=== PATIENT | female | born 1990 | race Caucasian/White ===

== ENCOUNTER 2021-01-04 13:56 | Outpatient (REF) | payer MEDICARE, MEDICAID, SELFPAY ==
[2021-01-04 16:41] LABS: Free T4 (Free Thyroxine) 1.04 ng/dL (0.71-1.85); Thyroid Stimulating Hormone 0.97 uIU/mL (0.32-4.0)
== END 2021-01-04 13:57 | disposition home or self-care (01) ==
LOC: HO.LAB 13:56
PROVIDERS: PCP Internal Medicine; Visit Provider Internal Medicine Endocrinology, Diabetes & Metabolism
DX: E03.8 Other specified hypothyroidism (principal); E06.3 Autoimmune thyroiditis; E66.01 Morbid (severe) obesity due to excess calories; Z68.41 Body mass index [BMI] 40.0-44.9, adult
CPT/HCPCS: 36415; 84439; 84443; 99212

== ENCOUNTER 2021-05-09 13:20 | Emergency (ER) | payer MEDICARE, MEDICAID, SELFPAY ==
--- NOTE | 2021-05-09 | ECG_ITS ---
Test Reason : FALL/SYNCOPE Blood Pressure : / mmHG Vent. Rate : 083 BPM Atrial Rate : 083 BPM P-R Int : 158 ms QRS Dur : 076 ms QT Int : 360 ms P-R-T Axes : 038 012 027 degrees QTc Int : 423 ms Normal sinus rhythm Cannot rule out Anterior infarct , age undetermined Abnormal ECG When compared with ECG of 05-NOV-2009 12:29, No significant change was found Referred By: Generic ED Physician Electronically Signed By:LUIS FELIPE FIERRO
--- NOTE | ~2021-05-09 | CT_ITS ---
EXAMINATION: CT HEAD WITHOUT CONTRAST CLINICAL INFORMATION: Headache and syncope. Rule out fracture, infarct or bleed. COMPARISON: Previous head CT October 2009 TECHNIQUE: Contiguous axial imaging was performed from the skull base to vertex without intravenous administration of contrast. This CT examination was performed using dose optimization techniques as appropriate, variously including the following: *Automated exposure control *Adjustment of mA and/or kV according to patient size (this includes techniques or standardized protocols for targeted exams where dose is matched to indication/reason for exam; i.e. extremities or head) *Use of iterative reconstruction technique DLP: 668 mGy-cm FINDINGS: There is no evidence of acute intracranial hemorrhage or territorial infarction. No abnormal mass effect or midline shift is seen. Still to white matter differentiation is well preserved. No extra-axial fluid collections are identified. The ventricles are normal in size. There is no abnormal attenuation within the brain parenchyma. The osseous structures and soft tissues are normal. The mastoid air cells and visualized portions of the paranasal sinuses are clear. CT/CT head/brain wo con IMPRESSION: Unremarkable exam.
[2021-05-09 13:28] VITALS: BP 153/85; PULSE 92; RESP 18; TEMP 37.1; O2SAT 97; BMI 41.1
[2021-05-09 15:44] LABS: MANUAL DIFF FLAG NO
[2021-05-09 15:47] LABS: Basophils Percent Auto 0.2 % (0-2); Eosinophils Percent Auto 0.3 % (0-4); Hematocrit 42.6 % (37-47); Hemoglobin 14.1 g/dl (12.0-16.0); Imm Gran Abs Auto 0.02 X10*3/uL (0.00-0.03); Imm Gran Pct Auto 0.2 % (0.0-0.4); Lymphocytes Absolute Auto 2.5 X10*3/uL (1.2-4.9); Lymphocytes Percent Auto 24.9 % (20-40); Mean Corpuscular HGB Conc 33.1 g/dl (31.0-35.0); Mean Corpuscular Hemoglobin 31.3 pg (27.0-33.0); Mean Corpuscular Volume 94.7 fL (80-98); Mean Platelet Volume 10.6 fL (9.4-12.3); Monocytes Absolute Auto 0.7 X10*3/uL (0.1-1.2); Monocytes Percent Auto 7.3 % (2-11); Neutrophils Absolute Auto 6.8 X10*3/uL (2.0-8.3); Neutrophils Percent Auto 67.1 % (45-73); Platelet Count 213 X10*3/uL (160-400); Red Cell Distribution Width 12.4 % (11.0-16.0); White Blood Count 10.1 X10*3/uL (4.8-10.8)
[2021-05-09 16:11] LABS: Alanine Aminotransferase 17 U/L (0-31); Albumin Level 5.1 g/dL (3.5-5.0); Alkaline Phosphatase 64 U/L (39-117); Anion Gap 15 (12-20); Aspartate Amino Transferase 20 U/L (5-31); Bilirubin Total 0.7 mg/dL (0.0-1.0); Blood Urea Nitrogen 19 mg/dL (9-16); Calcium 10.1 mg/dL (8.4-10.2); Carbon Dioxide 24 mmol/L (22-29); Chloride 111 mmol/L (96-108); Creatinine Clr Calc Pharmacy 104.8; Estimated Glomerular Filt Rate > 60; Glucose Random 97 mg/dL (60-115); Potassium 4.3 mmol/L (3.3-5.1); Sodium 146 mmol/L (135-145); Total Protein 8.3 g/dL (6.5-8.0)
--- NOTE | 2021-05-09 17:13 | ED_ITS ---
HPI - General Adult General Chief complaint: Syncope Stated complaint: passed out Time Seen by Provider: 05/09/21 16:31 Source: patient and family (Dari, the patient's healthcare proxy and remain) Mode of arrival: ambulatory Limitations: no limitations History of Present Illness HPI narrative: 30-year-old female who presents emergency department for evaluation of a syncopal episode that occurred at work. I did speak to the patient's healthcare proxy, Dari who states the patient has developmental delay and psychiatric issues. She states that the patient is a poor informant as well. Apparently, the patient has been coming home angry after work and her prescriber started her on 3 new psychiatric medications. The patient was started on clonidine 0.1 mg, half a mg in the morning, half a mg at 4:00 p.m. an d 1 mg at night. She was also started on lorazepam 0.5 mg at night. She was also started on aripiprazole in the morning. According to the patient's healthcare proxy, the patient has been taking this for approximately 3 days. Since starting these new medications, she has been in ?wobbly, feeling shaky and has been lethargic and somnolent. 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 She states that she went to put something away when she felt like her ?h ead was boiling ?. She states that she then became sweaty, lightheaded, dizzy and then felt like she was going to pass out. Her coworkers put her in a wheelchair and the patient states that she lost consciousness for an unknown period of time. The patient was then brought to the emergency department for evaluation. At the time of my evaluation, the patient has no complaints. Related Data Home Medications Medication Instructions Recorded Confirmed acetaminophen 650 mg 650 mg PO Q6H tab 10/22/20 01/04/21 tablet,extended release chlorhexidine gluconate 0.12 % PO 10/22/20 01/04/21 mouthwash albuterol sulfate 90 mcg/actuation 2 puff INHALATION PRN g 01/04/21 01/04/21 aerosol inhaler Previous Rx's Medication Instructions Recorded omeprazole 20 mg capsule,delayed 20 mg PO DAILY 90 Days #90 cap 10/22/20 release Levoxyl 125 mcg tablet 125 mcg PO DAILY 90 Days #90 tab NS 01/04/21 Allergies Allergy/AdvReac Type Severity Reaction Status Date / Time No Known Allergies Allergy Mild NOT Verified 12/18/20 11:11 APPLICABLE Review of Systems Review of Systems: Yes all other systems are reviewed and are negative [facility] Past Medical History [facility] Narrative: Past medical history: See below, patient does have developmental delay and psychiatric/psychosis. Social history: The patient denies tobacco, alcohol or drug use. Social history: She lives with her healthcare proxy, Dari. She does not drink alcohol she does not smoke cigarettes, she does not use drugs. Medical History Anxiety Asthma Daytime somnolence Hypothyroidism Morbid obesity Obese Physical exam Shortness of breath Urge urinary incontinence Surgical History History of appendectomy Family History Family History Father Diabetes Mother Diabetes Maternal Uncle Throat cancer Social History Social History Alcohol intake: never Advance Directives: No Advance Directives Information Provided: Yes Patient : No Physical Exam Vital Signs: Vital Signs: Last Vital Signs Temp 97.7 F 05/09/21 17:25 Pulse 82 05/09/21 17:25 Resp 18 05/09/21 17:25 BP 138/95 H 05/09/21 17:25 Pulse Ox 97 05/09/21 17:25 Body Mass Index 41.1 Const: General: cooperative Orientation/consciousness: oriented to person and oriented to place HENMT: Head: Yes normal to inspection, Yes normocephalic and Yes atraumatic Ears: external ears normal General nose exam: Normal external nose present Face and sinus: Yes normal facial exam Mouth: Normal oral and palatal mucosa present Throat: Yes posterior oropharynx normal Eyes: Periorbital: periorbital findings normal Eyelids: Yes eyelids normal Conjunctivae: conjunctivae normal Sclerae: sclerae normal Corneas: corneas normal Pupils: Equal, round and reactive pupils present Direct Ophthalmoscopy: normal light reflex Neck: Neck: Yes full ROM, Yes no lymphadenopathy, Yes no meningeal signs, Yes trachea midline and Yes supple Chest: Chest palpation & inspection: normal inspection of the chest and normal palpation of entire chest wall Resp: Effort & Inspection: normal respiratory effort and able to speak in complete sentences Auscultation: clear to auscultation bilaterally Cardio: Rate: regular rate Rhythm: regular rhythm Heart sounds: S1 normal heart sound present, S2 normal heart sound present and no murmurs GI: Inspection: Yes normal to inspection Palpation (GI): Soft to palpation, nontender, no guarding, not rigid and No hepatosplenomegaly present : General: Yes no CVA tenderness Back/Spine/Pelvis: Back: no CVA tenderness Cervical Spine: normal cervical lordosis Thoracic/Lumbar Spine: thoracic and lumbar spine normal to inspection Skin: Lesions: no lesions Rashes: no rashes Wounds: no wounds Neuro: General: oriented to person, oriented to place and no meningeal signs Cranial nerves: Yes CN's II-XII intact bilaterally and Yes Equal, round and reactive pupils present Cognition (Neuro): normal cognition Motor exam (neuro): 5/5 motor strength present throughout Extrem: General: Yes normal to inspection and Yes full ROM Psych: Mental Status: mental status grossly normal Speech and movement: Normal speech and movement present Affect: normal affect Attitude: co operative Course Course Course Narrative: 30-year-old female who presents emergency department for evaluation was syncopal episode that occurred at work. The patient has been started on new psychiatric medications and according to her healthcare proxy, the patient has been more lethargic on these new medications. Patient's physical examination was unremarkable. Laboratory evaluation revealed a normal CBC. Panel did reveal a slight elevation in her sodium of 146 and an elevated chloride of 111 suggesting that she is dehydrated. BUN was also slightly elevated at 19. 3+ blood and microscopic revealed 15-29 red blood cells with 1-4 white blood cells and squamous cells with 1+ bacteria -I do not think that she has urine infection. Twelve EKG was unremarkable. At this time I suspect the patient had a vasovagal syncopal event secondary to being dehydrated also possibly related to her being overmedicated from her new psychiatric medications. The patient will be discharged home. I told her healthcare proxy to contact her prescribing physician to discuss changing her medications since she has 2 lethargic on these medications. Medical Decision Making Lab Data Result diagrams: 05/09/21 15:37 05/09/21 15:37 Labs: Lab Results 05/09/21 05/09/21 05/09/21 Range/Units 15:37 15:37 17:26 WBC 10.1 (4.8-10.8) X10*3/uL RBC 4.50 (4.20-5.50) X10*6/uL Hgb 14.1 (12.0-16.0) g/dl Hct 42.6 (37-47) % MCV 94.7 (80-98) fL MCH 31.3 (27.0-33.0) pg MCHC 33.1 (31.0-35.0) g/dl RDW 12.4 (11.0-16.0) % Plt Count 213 (160-400) X10*3/uL MPV 10.6 (9.4-12.3) fL Immature Gran % (Auto) 0.2 (0.0-0.4) % Neut % (Auto) 67.1 (45-73) % Lymph % (Auto) 24.9 (20-40) % [place] % (Auto) 7.3 (2-11) % Eos % (Auto) 0.3 (0-4) % Baso % (Auto) 0.2 (0-2) % Lymph # (Auto) 2.5 (1.2-4.9) X10*3/uL [place] # (Auto) 0.7 (0.1-1.2) X10*3/uL Eos # (Auto) 0.0 (0.0-0.4) X10*3/uL Baso # (Auto) 0.0 (0.0-0.2) X10*3/uL Abs Immat Gran (auto) 0.02 (0.00-0.03) X10*3/uL Absolute Neuts (auto) 6.8 (2.0-8.3) X10*3/uL Absolute Nucleated RBC 0.000 (0.0-0.012) X10*3/uL Nucleated RBC % (auto) 0.0 (0.0-0.2) /100WBC Sodium 146 H (135-145) mmol/L Potassium 4.3 (3.3-5.1) mmol/L Chloride 111 H (96-108) mmol/L Carbon Dioxide 24 (22-29) mmol/L Anion Gap 15 (12-20) BUN 19 H (9-16) mg/dL Creatinine 0.83 (0.5-1.4) mg/dL Estim Creat Clear Calc 104.8 Estimated GFR > 60 Random Glucose 97 (60-115) mg/dL Calcium 10.1 (8.4-10.2) mg/dL Total Bilirubin 0.7 (0.0-1.0) mg/dL AST 20 (5-31) U/L ALT 17 (0-31) U/L Alkaline Phosphatase 64 (39-117) U/L Troponin I High Sens (<3.5-17.0) ng/L Total Protein 8.3 H (6.5-8.0) g/dL Albumin 5.1 H (3.5-5.0) g/dL Urine Color YELLOW Urine Appearance HAZY Urine pH 6.0 (5.0-8.0) Ur Specific [place] >= 1.030 H (1.005-1.025) Urine Protein 1+ H (NEG-TRACE) MG/DL Urine Glucose (UA) NEG (NEG) MG/DL Urine Ketones 5 (NEG) MG/DL Urine Blood 3+ H (NEG) Urine Nitrite NEG (NEG) Ur Leukocyte Esterase NEG (NEG) Urine RBC 15-29 H (0) /HPF Urine WBC 1-4 (0-4) /HPF Ur Squamous Epith Cells 3+ /LPF Amorphous Sediment 1+ /LPF Urine Bacteria 1+ /LPF Urine Test (NEGATIVE) 05/09/21 05/09/21 Range/Units 17:26 18:33 WBC (4.8-10.8) X10*3/uL RBC (4.20-5.50) X10*6/uL Hgb (12.0-16.0) g/dl Hct (37-47) % MCV (80-98) fL MCH (27.0-33.0) pg MCHC (31.0-35.0) g/dl RDW (11.0-16.0) % Plt Count (160-400) X10*3/uL MPV (9.4-12.3) fL Immature Gran % (Auto) (0.0-0.4) % Neut % (Auto) (45-73) % Lymph % (Auto) (20-40) % [place] % (Auto) (2-11) % Eos % (Auto) (0-4) % Baso % (Auto) (0-2) % Lymph # (Auto) (1.2-4.9) X10*3/uL [place] # (Auto) (0.1-1.2) X10*3/uL Eos # (Auto) (0.0-0.4) X10*3/uL Baso # (Auto) (0.0-0.2) X10*3/uL Abs Immat Gran (auto) (0.00-0.03) X10*3/uL Absolute Neuts (auto) (2.0-8.3) X10*3/uL Absolute Nucleated RBC (0.0-0.012) X10*3/uL Nucleated RBC % (auto) (0.0-0.2) /100WBC Sodium (135-145) mmol/L Potassium (3.3-5.1) mmol/L Chloride (96-108) mmol/L Carbon Dioxide (22-29) mmol/L Anion Gap (12-20) BUN (9-16) mg/dL Creatinine (0.5-1.4) mg/dL Estim Creat Clear Calc Estimated GFR Random Glucose (60-115) mg/dL Calcium (8.4-10.2) mg/dL Total Bilirubin (0.0-1.0) mg/dL AST (5-31) U/L ALT (0-31) U/L Alkaline Phosphatase (39-117) U/L Troponin I High Sens < 3.5 (<3.5-17.0) ng/L Total Protein (6.5-8.0) g/dL Albumin (3.5-5.0) g/dL Urine Color Urine Appearance Urine pH (5.0-8.0) Ur Specific [place] (1.005-1.025) Urine Protein (NEG-TRACE) MG/DL Urine Glucose (UA) (NEG) MG/DL Urine Ketones (NEG) MG/DL Urine Blood (NEG) Urine Nitrite (NEG) Ur Leukocyte Esterase (NEG) Urine RBC (0) /HPF Urine WBC (0-4) /HPF Ur Squamous Epith Cells /LPF Amorphous Sediment /LPF Urine Bacteria /LPF Urine Test NEGATIVE (NEGATIVE) ECG Data Attestation: I personally reviewed and interpreted this ECG as follows: Interpretation: 1619: Normal sinus rhythm, rate 83, normal OR interval, QRS duration and QTC intervals, no ST segment elevation or depression, no no PACs, no PVCs. Discharge Plan Discharge Clinical Impression: Syncope, Acute dehydration Patient Disposition: Home, Self-Care Instructions: Syncope (ED) Additional Instructions: At this time, I believe that you passed out because you are dehydrated You also may have been overmedicated by your new medications. Your healthcare proxy should call your prescribing doctor tomorrow to discuss whether not you should continue on medications. Please return to the emergency department if your symptoms get worse or if you develop any symptoms that are concerning to you. Prescriptions: No Action chlorhexidine gluconate 0.12 % mouthwash PO RF: 0 acetaminophen [Tylenol 8 Hour] 650 mg tablet extended release 650 mg PO Q6H RF: 0 omeprazole 20 mg capsule,delayed release(DR/EC) 20 mg PO DAILY 90 Days Qty: 90 RF: 3 albuterol sulfate 90 mcg/actuation HFA aerosol inhaler 2 puff inhalation PRN (Reason: shortness of breath or wheezing) RF: 0 levothyroxine [Levoxyl] 125 mcg tablet 125 mcg PO DAILY 90 Days Qty: 90 RF: 2 Stand Alone Forms: Work/School Release
[2021-05-09 17:25] VITALS: BP 138/95; PULSE 82; RESP 18; TEMP 36.5; O2SAT 97
[2021-05-09 17:59] LABS: Glucose Urine UA NEG (NEG); Leukocyte Esterase Urine NEG (NEG); Nitrite Urine NEG (NEG); Specific Gravity - Urine >= 1.030 (1.005-1.025); Urine Blood 3+ (NEG); Urine Ketones 5 MG/DL (NEG); Urine Protein 1+ MG/DL (NEG-TRACE)
[2021-05-09 18:05] LABS: Urine Pregnancy NEGATIVE (NEGATIVE)
[2021-05-09 18:06] LABS: UPreg QC Valid YES
[2021-05-09 18:08] LABS: Appearance Urine HAZY; Color Urine YELLOW
[2021-05-09 18:29] LABS: Amorphous Sediment Urine 1+ /LPF; Bacteria Urine 1+ /LPF; Squamous Epithelial Cell Urine 3+ /LPF
[2021-05-09 19:03] LABS: Troponin-I High Sensitivity < 3.5 ng/L (<3.5-17.0)
== END 2021-05-09 20:24 | disposition home or self-care (01) ==
PROVIDERS: Emergency Provider Emergency Medicine Emergency Medical Services; PCP Internal Medicine
DX: R55 Syncope and collapse (principal); E86.0 Dehydration; J45.909 Unspecified asthma, uncomplicated; Z79.899 Other long term (current) drug therapy
CPT/HCPCS: 36415; 70450; 80053; 81001; 81025; 84484; 85025; 93005; 99284

== ENCOUNTER 2021-05-23 15:52 | Emergency (ER) | payer MEDICARE, MEDICAID, SELFPAY ==
[2021-05-23 15:57] VITALS: BP 144/81; PULSE 83; RESP 16; TEMP 36.6; O2SAT 97; BMI 42.5
--- NOTE | 2021-05-23 16:52 | ED.BACK ---
HPI - Back Pain/Injury General Chief Complaint: Back Pain/Injury Stated Complaint: crisis- pt denies si Time Seen by Provider: 05/23/21 16:52 History of Present Illness HPI Narrative: patient complains of low back pain without radiation worse with movement that started 1 day ago, she attributes it to sleeping on the floor on on air mattress, there is no numbness no weakness no tingling no incontinence no changes to bowel or bladder, she had no other trauma no injury Related Data Home Medications Medication Instructions Recorded Confirmed acetaminophen 650 mg 650 mg PO Q6H tab 10/22/20 05/17/21 tablet,extended release chlorhexidine gluconate 0.12 % PO 10/22/20 05/17/21 mouthwash albuterol sulfate 90 mcg/actuation 2 puff INHALATION PRN g 01/04/21 05/17/21 aerosol inhaler aripiprazole 15 mg tablet 7.5 mg PO BEDTIME tab 05/13/21 05/17/21 clonidine HCl 0.1 mg tablet 0.05 mg PO BID tab 05/13/21 05/17/21 clonidine HCl 0.1 mg tablet 0.1 mg PO BEDTIME 05/13/21 05/17/21 lorazepam 1 mg tablet mg PO 05/13/21 05/17/21 metformin 500 mg tablet 500 mg PO DAILY 05/13/21 05/17/21 Previous Rx's Medication Instructions Recorded omeprazole 20 mg capsule,delayed 20 mg PO DAILY 90 Days #90 cap 10/22/20 release Levoxyl 125 mcg tablet 125 mcg PO DAILY 90 Days #90 tab NS 01/04/21 ibuprofen 600 mg PO Q6H PRN #20 tab 05/23/21 oxycodone 5 mg PO Q6H PRN #7 tab 05/23/21 Allergies Allergy/AdvReac Type Severity Reaction Status Date / Time No Known Allergies Allergy Mild NOT Verified 05/17/21 11:33 APPLICABLE Review of Systems Review of Systems: positive for back pain Negatives are no fever no chills no dizziness no weakness no fainting no feeling faint no headache no neck pain no numbness weakness or tingling no radiation of pain no changes to bowel or bladder no incontinence no dysuria no frequency no chest pain no abdominal pain no rash Yes all other systems are reviewed and are negative PMFSH Past Medical History Source: nursing notes reviewed Medical History Anxiety Asthma Daytime somnolence Hypothyroidism Morbid obesity Obese Physical exam Shortness of breath Urge urinary incontinence Surgical History History of appendectomy Family History Family History Father Diabetes Mother Diabetes Mental health disorder Maternal Uncle Throat cancer Social History Social History Housing: House Alcohol intake: never Patient Tobacco Use Status: Never used Tobacco Advance Directives: No Advance Directives Information Provided: No Patient : No Current occupational status: employed Physical Exam Vital Signs: Vital Signs: Last Vital Signs Temp 97.9 F 05/23/21 15:57 Pulse 83 05/23/21 15:57 Resp 16 05/23/21 15:57 BP 144/81 H 05/23/21 15:57 Pulse Ox 97 05/23/21 15:57 Body Mass Index 42.5 general appearance is no acute distress Head is normocephalic atraumatic The neck is supple and nontender The chest is clear to auscultation bilateral The heart no murmur Abdomen soft nontender The back had lower midline tenderness but no focal bony tenderness, skin was normal there is no CVA tenderness, pain is easily reproduced with bending and twisting, pain relieved by finding comfortable position Extremities full range of motion x4 Neuro no focal motor or sensory deficit, motor is 5/5 x4 and sensation is intact and symmetrical Course Course Course Narrative: patient improved with Toradol and Tylenol and is discharged home with musculoskeletal back pain, no neurologic deficit no changes to bowel or bladder Discharge Plan Discharge Clinical Impression: Back pain Patient Disposition: Home, Self-Care Additional Instructions: no sign of any dangerous condition now For pain you can use Motrin and if not sufficient you can add the Percocet which is a narcotic and will cause drowsiness Follow with primary doctor as needed Return any time any worse condition or any concerns Prescriptions: New oxycodone 5 mg tablet 5 mg PO Q6H PRN (Reason: pain) Qty: 7 RF: 0 ibuprofen 600 mg tablet 600 mg PO Q6H PRN (Reason: pain) Qty: 20 RF: 0 No Action chlorhexidine gluconate 0.12 % mouthwash PO RF: 0 acetaminophen [Tylenol 8 Hour] 650 mg tablet extended release 650 mg PO Q6H RF: 0 omeprazole 20 mg capsule,delayed release(DR/EC) 20 mg PO DAILY 90 Days Qty: 90 RF: 3 albuterol sulfate 90 mcg/actuation HFA aerosol inhaler 2 puff inhalation PRN (Reason: shortness of breath or wheezing) RF: 0 aripiprazole [Abilify] 15 mg tablet 7.5 mg PO BEDTIME RF: 0 metformin 500 mg tablet 500 mg PO DAILY RF: 0 lorazepam 1 mg tablet PO RF: 0 clonidine HCl 0.1 mg tablet 0.05 mg PO BID RF: 0 clonidine HCl 0.1 mg tablet 0.1 mg PO BEDTIME RF: 0 levothyroxine [Levoxyl] 125 mcg tablet 125 mcg PO DAILY 90 Days Qty: 90 RF: 2 Stand Alone Forms: Work/School Release
[2021-05-23] MEDS: Acetaminophen 325 MG TABLET 650 MG PO (17:09)
== END 2021-05-23 18:19 | disposition home or self-care (01) ==
PROVIDERS: Emergency Provider Internal Medicine; PCP Family Medicine
DX: M54.5 Low back pain (principal)
CPT/HCPCS: 96372; 99283; 99284

== ENCOUNTER 2021-05-27 09:52 | Emergency (ER) | payer MEDICARE, MEDICAID, SELFPAY ==
[2021-05-27 10:07] VITALS: BP 118/72; BP 122/80; PULSE 86; PULSE 88; RESP 16; TEMP 36.6; O2SAT 98; O2SAT 99; BMI 39.9
--- NOTE | 2021-05-27 10:49 | ED.BACK ---
HPI - Back Pain/Injury General Chief Complaint: Back Pain/Injury Stated Complaint: LOW BACK DOWN L LEG PAIN Time Seen by Provider: 05/27/21 10:49 History of Present Illness HPI Narrative: patient complains of back pain radiating down to the right foot with no changes to bowel or bladder no weakness The patient was seen here by me 3 days ago and at that time the pain was not radiating to the foot She had been prescribed oxycodone which she is taking 1 tablet every 6 hours and bring some relief but pain is still severe when she tries to stand up Related Data Home Medications Medication Instructions Recorded Confirmed acetaminophen 650 mg 650 mg PO Q6H tab 10/22/20 05/17/21 tablet,extended release chlorhexidine gluconate 0.12 % PO 10/22/20 05/17/21 mouthwash albuterol sulfate 90 mcg/actuation 2 puff INHALATION PRN g 01/04/21 05/17/21 aerosol inhaler aripiprazole 15 mg tablet 7.5 mg PO BEDTIME tab 05/13/21 05/17/21 clonidine HCl 0.1 mg tablet 0.05 mg PO BID tab 05/13/21 05/17/21 clonidine HCl 0.1 mg tablet 0.1 mg PO BEDTIME 05/13/21 05/17/21 lorazepam 1 mg tablet mg PO 05/13/21 05/17/21 metformin 500 mg tablet 500 mg PO DAILY 05/13/21 05/17/21 Previous Rx's Medication Instructions Recorded omeprazole 20 mg capsule,delayed 20 mg PO DAILY 90 Days #90 cap 10/22/20 release Levoxyl 125 mcg tablet 125 mcg PO DAILY 90 Days #90 tab NS 01/04/21 ibuprofen 600 mg PO Q6H PRN #20 tab 05/23/21 oxycodone 5 mg PO Q6H PRN #7 tab 05/23/21 ibuprofen 600 mg PO Q6H PRN #20 tab 05/27/21 lidocaine 1 patch TOPICAL DAILY #15 ea 05/27/21 oxycodone 10 mg PO Q6H PRN #20 tab 05/27/21 prednisone 60 mg PO DAILY 4 Days #12 tab 05/27/21 acetaminophen [Tylenol Extra 1,000 mg PO QID PRN #14 tab 05/28/21 Strength] cyclobenzaprine 10 mg PO Q8H #10 tab 05/28/21 ibuprofen 800 mg PO Q8H PRN #14 tab 05/28/21 Allergies Allergy/AdvReac Type Severity Reaction Status Date / Time No Known Allergies Allergy Mild NOT Verified 05/28/21 11:38 APPLICABLE Review of Systems Review of Systems: Positive for right-sided back pain radiating to the right foot Negatives are no fever no chills no dizziness no weakness no chest pain no abdominal pain no changes to bowel or bladder no dysuria no incontinence no rash Yes all other systems are reviewed and are negative [facility] Past Medical History Source: nursing notes reviewed Medical History Anxiety Asthma Daytime somnolence Hypothyroidism Morbid obesity Obese Physical exam Shortness of breath Urge urinary incontinence Surgical History History of appendectomy Family History Family History Father Diabetes Mother Diabetes Mental health disorder Maternal Uncle Throat cancer Social History Social History Housing: House Alcohol intake: never Patient Tobacco Use Status: Never used Tobacco Current occupational status: employed Physical Exam Vital Signs: Vital Signs: Last Vital Signs Temp 97.8 F 05/27/21 10:07 Pulse 88 05/27/21 10:07 Resp 16 05/27/21 10:07 BP 118/72 05/27/21 10:07 Pulse Ox 98 05/27/21 10:07 Body Mass Index 39.9 General appearance is no acute distress Head is normocephalic atraumatic Neck is supple and nontender The chest is clear to auscultation bilateral Heart no murmur The abdomen soft nontender The back had right lower gluteal and lower lumbar tenderness, no focal bony tenderness no rashes no deformities no redness to the skin, no CVA tenderness and pain was reproduced with movement Extremities full range of motion x4 Neuro no focal motor or sensory deficit Course Course Course Narrative: patient was able to stand on tiptoes, walk on heels and had good strength with no footdrop in ankles and feet she was able to lift a straight leg lift with equal strength to the other side No changes to bowel or bladder She was tested ambulating with the assistance of walker and could safely ambulate with a walker After pain medication she was able to sit up and stand up on her own but when she stood on her feet the right foot had significant pain which made it hard to walk unassisted so we tested her with a walker and she had no problem ambulating Discharge Plan Discharge Clinical Impression: Sciatica Patient Disposition: Home, Self-Care Additional Instructions: pain is now running down the right foot which could be from a herniated disc compressing a nerve in her back We are trying prednisone which in some cases reduces the radiating pain Best plan is follow closely with primary doctor for physical therapy and possible referral to a specialist if no improvement We doubled the dose of oxycodone which brought improved pain relief so if needed use 2 oxycodone, 10 mg every 6 hours as needed If she develops incontinence or inability to move her foot or weakness in the foot return immediately to the ER for further evaluation Return to ER any time for any worse condition or any concerns I did not write for an additional muscle relaxer as you have Ativan at home, and Ativan can be helpful to relax the muscles so you can try that in addition to the other medications to see if it is helpful I also wrote for a lidocaine patch which you can apply to the right side of her back and see if it helps reduce pain Prescriptions: New prednisone 20 mg tablet 60 mg PO DAILY 4 Days Qty: 12 RF: 0 oxycodone 5 mg tablet 10 mg PO Q6H PRN (Reason: pain) Qty: 20 RF: 0 ibuprofen 600 mg tablet 600 mg PO Q6H PRN (Reason: pain) Qty: 20 RF: 0 lidocaine 5 % adhesive patch,medicated 1 patch topical DAILY Qty: 15 RF: 0 No Action cyclobenzaprine 10 mg tablet 10 mg PO Q8H Qty: 10 RF: 0 ibuprofen 800 mg tablet 800 mg PO Q8H PRN (Reason: pain) Qty: 14 RF: 0 acetaminophen [Tylenol Extra Strength] 500 mg tablet 1,000 mg PO QID PRN (Reason: fever or pain) Qty: 14 RF: 0 oxycodone 5 mg tablet 5 mg PO Q6H PRN (Reason: pain) Qty: 7 RF: 0 ibuprofen 600 mg tablet 600 mg PO Q6H PRN (Reason: pain) Qty: 20 RF: 0 chlorhexidine gluconate 0.12 % mouthwash PO RF: 0 acetaminophen [Tylenol 8 Hour] 650 mg tablet extended release 650 mg PO Q6H RF: 0 omeprazole 20 mg capsule,delayed release(DR/EC) 20 mg PO DAILY 90 Days Qty: 90 RF: 3 albuterol sulfate 90 mcg/actuation HFA aerosol inhaler 2 puff inhalation PRN (Reason: shortness of breath or wheezing) RF: 0 aripiprazole [Abilify] 15 mg tablet 7.5 mg PO BEDTIME RF: 0 metformin 500 mg tablet 500 mg PO DAILY RF: 0 lorazepam 1 mg tablet PO RF: 0 clonidine HCl 0.1 mg tablet 0.05 mg PO BID RF: 0 clonidine HCl 0.1 mg tablet 0.1 mg PO BEDTIME RF: 0 levothyroxine [Levoxyl] 125 mcg tablet 125 mcg PO DAILY 90 Days Qty: 90 RF: 2 Stand Alone Forms: Work/School Release Interventions: ED Discharge Assessment Last Done: 05/27/21 13:01 Discharge Date/Time: 05/27/21 13:03
[2021-05-27] MEDS: oxyCODONE HCl Immed Release 5 MG TABLET 10 MG PO (11:06)
[2021-05-27] MEDS: diazePAM 5 MG TABLET PO (11:06)
[2021-05-27] MEDS: Ibuprofen 600 MG TABLET PO (12:31)
[2021-05-27] MEDS: Acetaminophen 325 MG TABLET 975 MG PO (12:31)
[2021-05-27] MEDS: predniSONE 20 MG TABLET 60 MG PO (12:33)
== END 2021-05-27 13:03 | disposition home or self-care (01) ==
PROVIDERS: Emergency Provider Emergency Medicine; PCP Internal Medicine
DX: M54.41 Lumbago with sciatica, right side (principal)
CPT/HCPCS: 96372; 99283; 99284

== ENCOUNTER 2021-05-28 11:30 | Emergency (ER) | payer MEDICARE, MEDICAID, SELFPAY ==
--- NOTE | ~2021-05-28 | XR_ITS ---
EXAMINATION: XR LUMBOSACRAL SPINE CLINICAL INFORMATION: Acute on chronic back pain COMPARISON: None TECHNIQUE: Three views of the lumbosacral spine. FINDINGS: Minimal endplate osteophytes at the L3-4 L4-5 level without disc space narrowing indicative of minimal degenerative disc change. The remaining disc levels are normal. Facets normal. No fracture or bone lesion. Surrounding soft tissues are normal. Incidental note is made of postsurgical changes with clips and sutures noted overlying the lower abdomen and pelvis XR/XR lumbar spine 2-3V IMPRESSION: Minimal spondylosis of lumbar sacral spine
[2021-05-28 11:35] VITALS: BP 128/68; PULSE 89; RESP 18; TEMP 36.6; O2SAT 98; BMI 39.9
--- NOTE | 2021-05-28 12:31 | PC.NURSE ---
JAN HINTON AT BEDSIDE FOR PRIMARY EVAL, PT ENDORSES SENSATION IN RLE WITH PALPATION, ABLE TO STAND AND AMBULATE W/ WALKER, PT REQUESTED WALKER FOR SAFETY, PT STS HAS BEEN USING HER MOTHER'S WALKER AT HOME.
--- NOTE | 2021-05-28 13:06 | ED_ITS ---
HPI - Back Pain/Injury General Chief Complaint: Extremity Problem Stated Complaint: RIGHT LEG PAIN Time Seen by Provider: 05/28/21 12:10 Source: patient and EMS Mode of arrival: EMS Limitations: other ( poor historian) History of Present Illness MD elicited complaint: back pain Pertinent past history: prior back pain Onset (ago): week(s) ( 2 weeks) Timing: constant Severity: moderate Similar Symptoms Previously: Yes Quality: aching Location: lumbar spine Radiation: right upper leg and right leg below the knee Exacerbating factors: walking Relieving factors: none Context: unknown Associated symptoms: other ( numbness to the right leg) Work related injury: No Related Data Home Medications Medication Instructions Recorded Confirmed acetaminophen 650 mg 650 mg PO Q6H tab 10/22/20 05/17/21 tablet,extended release chlorhexidine gluconate 0.12 % PO 10/22/20 05/17/21 mouthwash albuterol sulfate 90 mcg/actuation 2 puff INHALATION PRN g 01/04/21 05/17/21 aerosol inhaler aripiprazole 15 mg tablet 7.5 mg PO BEDTIME tab 05/13/21 05/17/21 clonidine HCl 0.1 mg tablet 0.05 mg PO BID tab 05/13/21 05/17/21 clonidine HCl 0.1 mg tablet 0.1 mg PO BEDTIME 05/13/21 05/17/21 lorazepam 1 mg tablet mg PO 05/13/21 05/17/21 metformin 500 mg tablet 500 mg PO DAILY 05/13/21 05/17/21 Previous Rx's Medication Instructions Recorded omeprazole 20 mg capsule,delayed 20 mg PO DAILY 90 Days #90 cap 10/22/20 release Levoxyl 125 mcg tablet 125 mcg PO DAILY 90 Days #90 tab NS 01/04/21 ibuprofen 600 mg PO Q6H PRN #20 tab 05/23/21 oxycodone 5 mg PO Q6H PRN #7 tab 05/23/21 ibuprofen 600 mg PO Q6H PRN #20 tab 05/27/21 lidocaine 1 patch TOPICAL DAILY #15 ea 05/27/21 oxycodone 10 mg PO Q6H PRN #20 tab 05/27/21 prednisone 60 mg PO DAILY 4 Days #12 tab 05/27/21 acetaminophen [Tylenol Extra 1,000 mg PO QID PRN #14 tab 05/28/21 Strength] cyclobenzaprine 10 mg PO Q8H #10 tab 05/28/21 ibuprofen 800 mg PO Q8H PRN #14 tab 05/28/21 Allergies Allergy/AdvReac Type Severity Reaction Status Date / Time No Known Allergies Allergy Mild NOT Verified 05/28/21 11:38 APPLICABLE Review of Systems Review of Systems: Constitutional : No trauma, No Weight loss, No Fever, No Chills, ENT/Mouth : No Hearing loss, No Ear Pain, No Nasal Congestion, No Sinus Pain, No Hoarseness, No sore throat, No Rhinorrhea, No Swallowing Difficulty Cardiovascular : No Chest Pain, No SOB Respiratory : No Cough, No Dyspnea Gastrointestinal : No Nausea, No Vomiting, No Diarrhea, No abdominal Pain, No Hematochezia, No Melena Genitourinary : No Dysuria, No Urinary Frequency, No Hematuria, No Urinary or Bowel Incontinence/retention Musculoskeletal : positive Back pain, No neck pain, No joint stiffness, No joint swelling Skin : No Skin Lesions, No rash or signs of infection Neuro : positive numbness/ paresthesia to right lower extremity, No Weakness, No radiation, No headache, no loss of bowel or bladder incontinence, no saddle anesthesia, Focal weakness, No radiation Denies history of IV drug usage. Yes all other systems are reviewed and are negative [facility] Past Medical History Attestation statement: The following information was validated with the patient. Medical History Anxiety Asthma Daytime somnolence Hypothyroidism Morbid obesity Obese Physical exam Shortness of breath Urge urinary incontinence Surgical History History of appendectomy Family History Family History Father Diabetes Mother Diabetes Mental health disorder Maternal Uncle Throat cancer Social History Social History Housing: House Alcohol intake: never Patient Tobacco Use Status: Never used Tobacco Advance Directives: No Advance Directives Information Provided: No Patient : No Current occupational status: employed Physical Exam Vital Signs: Vital Signs: Last Vital Signs Temp 98 F 05/28/21 11:35 Pulse 89 05/28/21 11:35 Resp 18 05/28/21 11:35 BP 128/68 05/28/21 11:35 Pulse Ox 98 05/28/21 11:35 Body Mass Index 39.9 vital signs have been reviewed as normal and appeared to be correct. Blood pressure normal. Heart rate normal. Respiration rate normal. Temperature normal. Oxygen saturation normal. Appearance: Alert. Oriented X3. No acute distress. Head: Normal external exam. Normocephalic. Atraumatic. No [place] signs noted. No raccoon eyes noted Eyes: PERRLA. EOMI. Conjunctiva and sclera normal. Eyelids normal. ENT: EAC normal. TM's Normal. Pharynx normal. Uvula midline. Moist mucous membranes. No trismus noted. No drooling noted. No muffled voice noted. Neck: Normal inspection. Neck supple. FROM. No adenopathy. Thyroid Normal. No meningeal signs. No neck mass noted. CVS: Normal heart rate and rhythm. Heart sound normal. No murmurs noted. Pulses normal throughout. Respiratory: No respiratory distress. Painless inspiration. Breath sounds normal. No wheezes/rales/rhonchi noted. Chest nontender. No accessory muscle usage noted or decreased air movement noted. Abdomen: Soft and nontender. Bowel sounds normal in all 4 quadrants. No distention noted. No organomegaly noted. No visible injury noted. Back: No CVA tenderness. Full range of motion noted. No obvious deformities, or edema. Mild para-spinal muscular tenderness from lumbar region to coccyx. Full ROM in back and lower extremities. 5/5 strength hip extension/flexion, abduction, adduction. Mild Lumbar pain with hip flexion against resistance. Straight leg raise test negative on right; Straight leg raise test negative on left; Reflexes normal ankle and knee bilaterally; EHL motor strength normal bilaterally. No rashes/lesion/induration/fluctuance or signs infection noted. Skin: Skin warm and dry. Normal skin color. Normal skin turgor. No rashes/lesions/lacerations noted. Extremities: No lower extremity edema. Extremities exhibit normal range of motion. Extremities nontender. Neuro: Oriented X 3. No motor deficit. No sensory deficit. Reflexes normal. Patient has a normal steady gait. Course Course Course Narrative: Pt c likely muscular pain, but could be herniated disc. Neuro exam shows no deficits. Not c/w AAA/epidural abscess/dissection.No high risk Hx (Incont, fever, immunosupp, recent surgery/LP, coag, signif trauma, wt loss, puls mass, hx/o Ca, TB, or IVDU) to warrant MRI/CT today. Not c/w Pyelo/UTI/kidney stone/spinal fx. Not cauda equina syndrome. imaging not currently indicated although patient is requesting x-ray of her lumbar spine as she reports she has been here multiple times for same complaint and she has not received an x-ray of her lumbar spine. She has full sensation after she reported she had no sensation to the right lower extremity once I pulled out an 18 gauge needle she started moving the leg and saying that she had full sens ation and she was able to ambulate without any difficulties on my exam. If x- ray negative will DC c meds and f/u. MDM - Back Pain/Injury Medical Records Attestation: I reviewed the patient's medical records. Imaging Data x-ray of lumbar spine: Attestation: I personally reviewed and interpreted this imaging study as follows: Radiologist's impression: FINDINGS: Minimal endplate osteophytes at the L3-4 L4-5 level without disc space narrowing indicative of minimal degenerative disc change. The remaining disc levels are normal. Facets normal. No fracture or bone lesion. Surrounding soft tissues are normal. Incidental note is made of postsurgical changes with clips and sutures noted overlying the lower abdomen and pelvis XR/XR lumbar spine 2-3V IMPRESSION: Minimal spondylosis of lumbar sacral spine Discharge Plan Discharge Clinical Impression: Lumbar spondylolysis Patient Disposition: Home, Self-Care Instructions: Back Pain (ED), Lower Back Exercises (ED) Prescriptions: New cyclobenzaprine 10 mg tablet 10 mg PO Q8H Qty: 10 RF: 0 ibuprofen 800 mg tablet 800 mg PO Q8H PRN (Reason: pain) Qty: 14 RF: 0 acetaminophen [Tylenol Extra Strength] 500 mg tablet 1,000 mg PO QID PRN (Reason: fever or pain) Qty: 14 RF: 0 No Action oxycodone 5 mg tablet 5 mg PO Q6H PRN (Reason: pain) Qty: 7 RF: 0 ibuprofen 600 mg tablet 600 mg PO Q6H PRN (Reason: pain) Qty: 20 RF: 0 prednisone 20 mg tablet 60 mg PO DAILY 4 Days Qty: 12 RF: 0 oxycodone 5 mg tablet 10 mg PO Q6H PRN (Reason: pain) Qty: 20 RF: 0 ibuprofen 600 mg tablet 600 mg PO Q6H PRN (Reason: pain) Qty: 20 RF: 0 lidocaine 5 % adhesive patch,medicated 1 patch topical DAILY Qty: 15 RF: 0 chlorhexidine gluconate 0.12 % mouthwash PO RF: 0 acetaminophen [Tylenol 8 Hour] 650 mg tablet extended release 650 mg PO Q6H RF: 0 omeprazole 20 mg capsule,delayed release(DR/EC) 20 mg PO DAILY 90 Days Qty: 90 RF: 3 albuterol sulfate 90 mcg/actuation HFA aerosol inhaler 2 puff inhalation PRN (Reason: shortness of breath or wheezing) RF: 0 aripiprazole [Abilify] 15 mg tablet 7.5 mg PO BEDTIME RF: 0 metformin 500 mg tablet 500 mg PO DAILY RF: 0 lorazepam 1 mg tablet PO RF: 0 clonidine HCl 0.1 mg tablet 0.05 mg PO BID RF: 0 clonidine HCl 0.1 mg tablet 0.1 mg PO BEDTIME RF: 0 levothyroxine [Levoxyl] 125 mcg tablet 125 mcg PO DAILY 90 Days Qty: 90 RF: 2 Referrals: Nixon Washington MD [Primary Care Provider] - 2 days Print Language: Belarusian
== END 2021-05-28 14:03 | disposition home or self-care (01) ==
PROVIDERS: Emergency Provider Emergency Medicine; PCP Internal Medicine
DX: M54.16 Radiculopathy, lumbar region (principal)
CPT/HCPCS: 72100; 99283

== ENCOUNTER 2021-09-26 09:17 | Outpatient (REF) | payer MEDICARE, MEDICAID, SELFPAY ==
[2021-09-26 10:08] LABS: Hemoglobin 13.1 g/dl (12.0-16.0); Mean Corpuscular HGB Conc 32.8 g/dl (31.0-35.0); Mean Corpuscular Hemoglobin 31.2 pg (27.0-33.0); Mean Corpuscular Volume 95.2 fL (80.0-98.0); Mean Platelet Volume 11.1 fL (9.4-12.3); Platelet Count 223 X10*3/uL (160-400); Red Cell Distribution Width 12.4 % (11.0-16.0); White Blood Count 6.2 X10*3/uL (4.8-10.8)
[2021-09-26 10:21] LABS: INTERNATIONAL NORM RATIO 1.2 (0.9-1.1); Prothrombin Time 13.1 SEC (9.9-13.0)
[2021-09-26 10:26] LABS: Estimated Average Glucose 105 mg/dL; Hemoglobin A1c % 5.3 %
[2021-09-26 10:46] LABS: Alanine Aminotransferase 12 U/L (0-31); Albumin Level 4.6 g/dL (3.5-5.0); Alkaline Phosphatase 54 U/L (39-117); Anion Gap 13 (12-20); Aspartate Amino Transferase 15 U/L (5-31); Bilirubin Total 0.5 mg/dL (0.0-1.0); Blood Urea Nitrogen 15 mg/dL (9-16); Calcium 9.6 mg/dL (8.4-10.2); Carbon Dioxide 25 mmol/L (22-29); Chloride 107 mmol/L (96-108); Cholesterol 217 mg/dL; Estimated Glomerular Filt Rate > 60; Glucose Fasting 118 mg/dL (60-99); HDL Cholesterol 40 mg/dL; LDL Cholesterol Calculated 156 mg/dl; Potassium 4.9 mmol/L (3.3-5.1); Sodium 140 mmol/L (135-145); Total Protein 7.5 g/dL (6.5-8.0); Triglycerides 106 mg/dL
[2021-09-26 11:07] LABS: TSH reflex Free T4 0.41 uIU/mL (0.32-4.0)
== END 2021-09-26 09:18 | disposition home or self-care (01) ==
LOC: HO.LAB 09:17
PROVIDERS: Visit Provider Nurse Practitioner Family
DX: E03.9 Hypothyroidism, unspecified (principal); E66.01 Morbid (severe) obesity due to excess calories; F41.9 Anxiety disorder, unspecified; E78.00 Pure hypercholesterolemia, unspecified; E11.9 Type 2 diabetes mellitus without complications
CPT/HCPCS: 36415; 80053; 80061; 83036; 84443; 85027; 85610

== ENCOUNTER → 2022-01-16 09:04 | Outpatient (BNVA) | payer MEDICARE, MEDICAID, SELFPAY | PROVIDERS: PCP Nurse Practitioner Family; Visit Provider Internal Medicine Endocrinology, Diabetes & Metabolism | DX: E03.8 Other specified hypothyroidism (principal); E06.3 Autoimmune thyroiditis | CPT/HCPCS: 99212 ==

== ENCOUNTER 2022-01-31 16:10 | Outpatient (REF) | payer MEDICARE, MEDICAID, SELFPAY ==
--- NOTE | ~2022-01-31 | US_ITS ---
EXAMINATION: US VENOUS ULTRASOUND WITH DOPPLER LOWER EXTREMITY, RIGHT CLINICAL INFORMATION: Acute embolism and thrombosis of right popliteal artery. COMPARISON: None TECHNIQUE: Ultrasound of the deep veins is performed from the hip to the calf with compression sonography and color and pulse Doppler assessment. Spectral analysis with color-flow imaging is performed. FINDINGS: There is normal venous compression and respiratory variation and augmented flow. The visualized common femoral vein, superficial femoral vein, profunda femoral vein, popliteal vein, and the trifurcation region shows no evidence of deep venous thrombosis. There is no significant popliteal fossa cyst. If the patient's symptoms persist, followup ultrasound in 5 days 7 days might be of value to exclude proximal propagation from a non-visualized calf vein. US/US venous duplex LE RT IMPRESSION: No DVT demonstrated in the right lower extremity.
== END 2022-01-31 16:11 | disposition home or self-care (01) ==
LOC: HO.US 16:10
PROVIDERS: Visit Provider Nurse Practitioner Family
DX: I82.431 Acute embolism and thrombosis of right popliteal vein (principal)
CPT/HCPCS: 93971

== ENCOUNTER 2022-05-14 13:02 | Outpatient (REF) | payer MEDICARE, MEDICAID, SELFPAY ==
[2022-05-14 15:03] LABS: Free T4 (Free Thyroxine) 1.26 ng/dL (0.71-1.85); Thyroid Stimulating Hormone 0.83 uIU/mL (0.32-4.0)
== END 2022-05-14 13:03 | disposition home or self-care (01) ==
LOC: HO.LAB 13:02
PROVIDERS: PCP Internal Medicine; Visit Provider Internal Medicine Endocrinology, Diabetes & Metabolism
DX: E03.8 Other specified hypothyroidism (principal); E06.3 Autoimmune thyroiditis; E66.01 Morbid (severe) obesity due to excess calories
CPT/HCPCS: 36415; 84439; 84443; 99212

== ENCOUNTER 2022-11-11 14:11 | Outpatient (REF) | payer MEDICARE, MEDICAID, SELFPAY ==
[2022-11-11 14:54] LABS: Hematocrit 41.5 % (37.0-47.0); Hemoglobin 13.6 g/dl (12.0-16.0); Mean Corpuscular HGB Conc 32.8 g/dl (31.0-35.0); Mean Corpuscular Hemoglobin 31.1 pg (27.0-33.0); Mean Corpuscular Volume 94.7 fL (80.0-98.0); Mean Platelet Volume 11.2 fL (9.4-12.3); Platelet Count 212 X10*3/uL (160-400); Red Blood Count 4.38 X10*6/uL (4.20-5.50); Red Cell Distribution Width 12.7 % (11.0-16.0); White Blood Count 6.6 X10*3/uL (4.8-10.8)
[2022-11-11 16:10] LABS: Estimated Average Glucose 108 mg/dL; Hemoglobin A1c % 5.4 %
[2022-11-11 16:35] LABS: Alanine Aminotransferase 15 U/L (0-31); Alkaline Phosphatase 54 U/L (39-117); Anion Gap 11 (12-20); Aspartate Amino Transferase 18 U/L (5-31); Bilirubin Direct < 0.2 mg/dL (0.0-0.5); Bilirubin Total 0.4 mg/dL (0.0-1.0); Blood Urea Nitrogen 21 mg/dL (9-16); Calcium 10.8 mg/dL (8.4-10.2); Carbon Dioxide 26 mmol/L (22-29); Chloride 108 mmol/L (96-108); Cholesterol 193 mg/dL; Estimated Glomerular Filt Rate > 60; Glucose Random 92 mg/dL (60-115); HDL Cholesterol 40 mg/dL; LDL Cholesterol Calculated 127 mg/dl; Potassium 4.1 mmol/L (3.3-5.1); Sodium 141 mmol/L (135-145); Total Protein 7.6 g/dL (6.5-8.0); Triglycerides 134 mg/dL
== END 2022-11-11 14:12 | disposition home or self-care (01) ==
LOC: HO.LAB 14:11
PROVIDERS: PCP Internal Medicine; Visit Provider Internal Medicine
DX: E11.9 Type 2 diabetes mellitus without complications (principal); I10 Essential (primary) hypertension
CPT/HCPCS: 36415; 80048; 80061; 80076; 83036; 84443; 85027

== ENCOUNTER → 2023-04-02 15:21 | Outpatient (BNVA) | payer MEDICARE, MEDICAID, SELFPAY | PROVIDERS: PCP Internal Medicine; Visit Provider Physician Assistant Surgical ==

== ENCOUNTER → 2023-04-23 14:44 | Outpatient (BNVA) | payer MEDICARE, MEDICAID, SELFPAY | PROVIDERS: PCP Internal Medicine; Referring Provider Internal Medicine; Visit Provider Physician Assistant Surgical | DX: E66.01 Morbid (severe) obesity due to excess calories (principal); F41.8 Other specified anxiety disorders; F81.9 Developmental disorder of scholastic skills, unspecified; F41.9 Anxiety disorder, unspecified; E11.9 Type 2 diabetes mellitus without complications; I10 Essential (primary) hypertension; J45.30 Mild persistent asthma, uncomplicated; E03.8 Other specified hypothyroidism; E06.3 Autoimmune thyroiditis; Z68.41 Body mass index [BMI] 40.0-44.9, adult | CPT/HCPCS: 99202 ==

== ENCOUNTER 2023-05-14 15:06 | Outpatient (REF) | payer MEDICARE, MEDICAID, SELFPAY ==
[2023-05-14 16:50] LABS: Hematocrit 41.6 % (37.0-47.0); Hemoglobin 13.4 g/dl (12.0-16.0); Mean Corpuscular HGB Conc 32.2 g/dl (31.0-35.0); Mean Corpuscular Hemoglobin 30.5 pg (27.0-33.0); Mean Corpuscular Volume 94.5 fL (80.0-98.0); Mean Platelet Volume 11.5 fL (9.4-12.3); Platelet Count 196 X10*3/uL (160-400); White Blood Count 6.6 X10*3/uL (4.8-10.8)
[2023-05-14 16:59] LABS: Appearance Urine Clear; Color Urine Yellow; Glucose Urine UA >=1000 mg/dL (Negative); Leukocyte Esterase Urine Negative (Negative); Nitrite Urine Negative (Negative); PH 5.5 (5.0-9.0); Specific Gravity - Urine >= 1.030 (1.005-1.025); UMIC TRIGGER UA YES; Urine Blood Negative (Negative); Urine Ketones Negative (Negative); Urine Protein Negative (Neg-Trace)
[2023-05-14 17:02] LABS: Estimated Average Glucose 105 mg/dL; Hemoglobin A1c % 5.3 %
[2023-05-14 17:34] LABS: Creatinine Urine 98.29 mg/dL; Microalbumin Urine < 5.0 mg/L
[2023-05-14 17:35] LABS: Bacteria Urine None Seen (None Seen); Hyaline Casts Urine 0-2 /LPF (0-2); RBC Urine 0-2 /HPF (0-2); Squamous Epithelial Cell Urine 0-2 /HPF (0-2); WBC Urine 0-5 /HPF (0-5)
[2023-05-14 17:36] LABS: Alanine Aminotransferase 14 U/L (0-31); Albumin Level 4.7 g/dL (3.5-5.0); Alkaline Phosphatase 51 U/L (39-117); Anion Gap 10 (12-20); Aspartate Amino Transferase 21 U/L (5-31); Bilirubin Direct 0.1 mg/dL (0.0-0.5); Bilirubin Total 0.5 mg/dL (0.0-1.0); Blood Urea Nitrogen 29 mg/dL (9-16); Calcium 9.3 mg/dL (8.4-10.2); Carbon Dioxide 25 mmol/L (22-29); Chloride 109 mmol/L (96-108); Cholesterol 198 mg/dL; Estimated Glomerular Filt Rate > 60; Glucose Random 85 mg/dL (60-115); HDL Cholesterol 42 mg/dL; LDL Cholesterol Calculated 123 mg/dl; Potassium 3.9 mmol/L (3.3-5.1); Sodium 140 mmol/L (135-145); Total Protein 7.6 g/dL (6.5-8.0); Triglycerides 165 mg/dL
== END 2023-05-14 15:07 | disposition home or self-care (01) ==
LOC: HO.LAB 15:06
PROVIDERS: PCP Internal Medicine; Visit Provider Internal Medicine
DX: E11.9 Type 2 diabetes mellitus without complications (principal)
CPT/HCPCS: 36415; 80048; 80061; 80076; 81001; 81003; 82043; 83036; 85027

== ENCOUNTER 2023-08-13 13:09 | Outpatient (AMB) | payer MEDICARE, MEDICAID, SELFPAY ==
--- NOTE | 2023-08-13 13:23 | A.OFFPC_ITS ---
Vital Signs 08/13/23 13:27 Height 5 ft 2 in Weight 218 lb BMI 39.9 BP 130/66 Blood Pressure Location Lt brachial Position Sitting Pulse 64 Pulse Source Pulse Oximeter Pulse Oximetry (%) 99 Oxygen Delivery Method Room Air Intake Visit Reasons: 3mth f/u Intake Note: Patient is here to follow up on DM, Hypothyroidism, Asthma. Chemical Engraver Required: No Director Of Strategic Alliances: Present Accompanied by: staff Allergies No Known Allergies Allergy (Mild, Verified 08/13/23 13:57) NOT APPLICABLE Medication List - Last Reconciled 08/13/23 by Nixon Washington MD acetaminophen ER (Tylenol 8 Hour) 650 mg PO Q6H PRN albuterol sulfate 90 mcg/actuation 2 puffs inhalation Q6-8H PRN apixaban (Eliquis) 5 mg PO BID aripiprazole (Abilify) 7.5 mg PO DAILY aripiprazole (Abilify) 15 mg PO BEDTIME buspirone 10 mg PO BID carvedilol 3.125 mg PO BID dapagliflozin propanediol (Farxiga) 10 mg PO DAILY fluoride (sodium) 1.1% (PreviDent 5000 [employer] Defense) 1 appl dental BID ibuprofen (IBU) 600 mg PO Q6H PRN Levoxyl (levothyroxine) 125 mcg PO DAILY 90 days NS metformin ER 500 mg PO DAILY omeprazole 20 mg PO DAILY valsartan 20 mg (1/2 x 40 mg) PO BID Tobacco use date assessed: 08/13/23 Dental Screening Dental Screen Date: 08/13/23 Did you have a dental visit in the last 12 months?: Yes Did you have a dental problem in the last 6 months where you did not have access to dental care?: No Was dental information given to patient?: Patient has dentist HPI 3mth f/u HPI Details 32-year-old female presents to the [facility] to discuss her chronic medical conditions. Patient is accompanied by a service [facility] provider with whom she lives. She is compliant with medications and reports no complaints. She is at baseline state of health. Her repeat A1c was in range today. [facility] Medical History Depression with anxiety Type 2 diabetes mellitus without complication, with no history of insulin use Morbid obesity Daytime somnolence Physical exam Urge urinary incontinence Anxiety Asthma Shortness of breath Obese Hypothyroidism Surgical History History of appendectomy Family History Father Diabetes Mother Diabetes Mental health disorder Maternal Uncle Throat cancer Social History Household Members: Caregiver Housing: House Alcohol intake: never Patient Tobacco Use Status: Never used Tobacco e-Cigarette/Vaping Use: Never Used Second Hand Smoke Exposure: No service: No Current occupational status: unemployed Cognitive needs: No Hearing needs: No Vision needs: Yes (glasses) Questionnaire Thrive Questionnaire Date Thrive assessed: 02/12/23 CHARO-7 AMB Questionnaire CHARO-7 Date CHARO - 7 assessed: 02/12/23 Source: Developed by Drs. Robel Deras, Toya Zepeda, Young Craft and colleagues, with an educational victorino from [employer]. Physical exam (Primary Care) Vital Signs: Last Vital Signs Pulse 64 08/13/23 13:27 BP 130/66 08/13/23 13:27 Pulse Ox 99 08/13/23 13:27 Oxygen Delivery Method Room Air 08/13/23 13:27 Care Plan Goal for BP management: Blood pressure is in range. Continue current medications. BMI result Body Mass Index 39.9 BMI Assessment/Plan discussion: High (1 lb per week weight loss suggested.) BMI High, discussed plan: lifestyle, weight reduction, dietary and physical activity Tobacco/Smoking Status: Tobacco use Status Tobacco use date assessed 08/13/23 08/13/23 13:40 Patient Tobacco Use Status Never used Tobacco 08/13/23 13:24 e-Cigarette/Vaping Use Never Used 08/13/23 13:24 Thrive Assessment: Date of Thrive Assessment Date Thrive assessed 02/12/23 08/13/23 13:24 Const General: cooperative and healthy appearing Nutritional Appearance: well nourished Orientation/consciousness: patient oriented x3 Limitations: no limitations HENMT Head: Yes normal to inspection Eyes General: appearance normal, both eyes and all related structures Neck Neck: Yes normal visual inspection Chest Chest palpation & inspection: normal palpation of entire chest wall Resp Effort & Inspection: normal respiratory effort Neuro General: patient oriented x3 Results AMB Hemoglobin A1c AMB Hemoglobin A1c 6.1 % Last Edit by KURT Baker on 08/13/23 13:42 Results Reviewed Results Reviewed: Laboratory Last Values Hgb A1c (Clinic) 6.1 % (4.0-6.0) H 08/13/23 13:41 Assessment and Plan Assessment & Plan (1) Type 2 diabetes mellitus without complication, with no history of insulin use: Code(s): E11.9 - Type 2 diabetes mellitus without complications Plan: A1c is in range. Continue current medications. (2) Thrombosis of right popliteal vein: Comment: Needs repeat US by 11/30/21 Code(s): I82.431 - Acute embolism and thrombosis of right popliteal vein Plan: Patient is on oral anticoagulants for more than a year. A Hematology appointment will be requested to see if the medication should be continued or discontinued. Orders: Orders AMB Hemoglobin A1c Today E11.9 - Type 2 diabetes mellitus without complications Medications: Changed From aripiprazole (Abilify) 7.5 mg (1/2 x 15 mg) PO BEDTIME 30 tabs 0RF To aripiprazole (Abilify) 7.5 mg PO DAILY Refilled valsartan 20 mg (1/2 x 40 mg) PO BID 90 tabs 0RF metformin ER 500 mg PO DAILY 90 tabs 0RF Levoxyl (levothyroxine) Dispense as written, brand medically necessary. Do not substitute 125 mcg PO DAILY 90 days 90 tabs 2RF NS E03.9 - Hypothyroidism, unspecified apixaban (Eliquis) 5 mg PO BID 56 tabs 2RF albuterol sulfate 90 mcg/actuation 2 puffs inhalation Q6-8H PRN 8.5 grams 0RF shortness of breath or wheezing acetaminophen ER (Tylenol 8 Hour) 650 mg PO Q6H PRN 30 tabs 0RF pain Coding Level of Care Code Est Pt Level 4 (95026) Diagnoses Type 2 diabetes mellitus without complication, with no history of insulin use E11.9 Thrombosis of right popliteal vein I82.431
[2023-08-13 13:27] VITALS: BP 130/66; PULSE 64; O2SAT 99; BMI 39.9
== END 2023-08-13 14:00 | disposition home or self-care (01) ==
PROVIDERS: PCP Internal Medicine; Visit Provider Internal Medicine
DX: E11.9 Type 2 diabetes mellitus without complications (principal); I82.431 Acute embolism and thrombosis of right popliteal vein
CPT/HCPCS: 83036; 99214

== ENCOUNTER 2023-11-12 07:51 | Outpatient (AMB) | payer MEDICARE, MEDICAID, SELFPAY ==
[2023-11-12 08:11] VITALS: BP 122/68; PULSE 67; O2SAT 98; BMI 40.1
--- NOTE | 2023-11-12 08:11 | A.OFFPC_ITS ---
Vital Signs 11/12/23 08:11 Height 5 ft 2 in Weight 219 lb BMI 40.1 BP 122/68 Blood Pressure Location Lt brachial Position Sitting Pulse 67 Pulse Source Pulse Oximeter Pulse Oximetry (%) 98 Oxygen Delivery Method Room Air Intake Visit Reasons: Annual exam Allergies No Known Allergies Allergy (Mild, Verified 11/12/23 08:50) NOT APPLICABLE Medication List - Last Reconciled 11/12/23 by Nixon Washington MD acetaminophen ER (Tylenol 8 Hour) 650 mg PO Q6H PRN albuterol sulfate 90 mcg/actuation 2 puffs inhalation Q6-8H PRN apixaban (Eliquis) 5 mg PO BID aripiprazole (Abilify) 7.5 mg PO DAILY aripiprazole (Abilify) 15 mg PO BEDTIME buspirone 10 mg PO BID carvedilol 3.125 mg PO BID fluoride (sodium) 1.1% (PreviDent 5000 Ortho Defense) 1 appl dental BID ibuprofen (IBU) 600 mg PO Q6H PRN Levoxyl (levothyroxine) 125 mcg PO DAILY 90 days NS metformin ER 500 mg PO DAILY omeprazole 20 mg PO DAILY valsartan 20 mg (1/2 x 40 mg) PO BID Tobacco use date assessed: 08/13/23 Dental Screening Dental Screen Date: 11/12/23 Did you have a dental visit in the last 12 months?: Yes Did you have a dental problem in the last 6 months where you did not have access to dental care?: No Was dental information given to patient?: Patient has dentist HPI Annual exam HPI Details 33-year-old female presents to the [facility] requesting an annual physical . She is accompanied by a family member who is also her TELEVISION SERVICER. Patient is at baseline state of health. Since last office visit patient had worsening anxiety and her medications have been increased. Subsequently her symptoms are under reasonable control. [facility] Medical History Depression with anxiety Type 2 diabetes mellitus without complication, with no history of insulin use Morbid obesity Daytime somnolence Physical exam Urge urinary incontinence Anxiety Asthma Shortness of breath Obese Hypothyroidism Surgical History History of appendectomy Family History Father Diabetes Mother Diabetes Mental health disorder Maternal Uncle Throat cancer Social History Household Members: Caregiver Housing: House Alcohol intake: never Patient Tobacco Use Status: Never used Tobacco e-Cigarette/Vaping Use: Never Used Second Hand Smoke Exposure: No service: No Current occupational status: unemployed Cognitive needs: No Hearing needs: No Vision needs: Yes (glasses) Questionnaire PHQ-9 Over the last 2 weeks, how often have you been bothered by any of the following problems? 1. Little interest or pleasure in doing things: not at all 2. Feeling down, depressed, or hopeless: not at all 3. Trouble falling or staying asleep, or sleeping too much: not at all 4. Feeling tired or having little energy: not at all 5. Poor appetite or overeating: not at all 6. Feeling bad about yourself - or that you are a failure or have let yourself or your family down: not at all 7. Trouble concentrating on things, such as reading the newspaper or watching television: not at all 8. Moving or speaking so slowly that other people could have noticed. Or the opposite - being so fidgety or restless that you have been moving around a lot more than usual: not at all 9. Thoughts that you would be better off or of hurting yourself in some way: not at all Total score: 0 Depression Screening Interpretation: Negative Depression Screening Done: Yes Source: Developed by Drs. Robel Deras, Toya Zepeda, Young Craft and colleagues, with an educational victorino from [employer]. Thrive Questionnaire Date Thrive assessed: 02/12/23 AUDIT C Alcohol Use Questionnaire (AUDIT-C) 1. How often do you have a drink containing alcohol?: Never 3. How often do you have six or more drinks on one occasion?: Never Total Score: 0 CHARO-7 AMB Questionnaire CHARO-7 Date CHARO - 7 assessed: 02/12/23 Source: Developed by Drs. Robel Deras, Young Contreras and colleagues, with an educational victorino from [employer]. Physical exam (Primary Care) Vital Signs: Last Vital Signs Pulse 67 11/12/23 08:11 BP 122/68 11/12/23 08:11 Pulse Ox 98 11/12/23 08:11 Oxygen Delivery Method Room Air 11/12/23 08:11 Care Plan Goal for BP management: Blood pressure is in range. Continue current medications. BMI result Body Mass Index 40.1 BMI Assessment/Plan discussion: High (1 lb per week weight loss suggested.) BMI High, discussed plan: lifestyle, weight reduction and dietary Tobacco/Smoking Status: Tobacco use Status Tobacco use date assessed 08/13/23 11/12/23 08:17 Patient Tobacco Use Status Never used Tobacco 11/12/23 08:17 e-Cigarette/Vaping Use Never Used 11/12/23 08:17 PHQ-9: PHQ-9 Score PHQ-9: Total score 0 11/12/23 08:27 Depression Screening Interpretation: Negative Thrive Assessment: Date of Thrive Assessment Date Thrive assessed 02/12/23 11/12/23 08:17 Const General: cooperative and healthy appearing Nutritional Appearance: well nourished Orientation/consciousness: patient oriented x3 Limitations: no limitations HENMT Head: Yes normal to inspection Eyes General: appearance normal, both eyes and all related structures Neck Neck: Yes normal visual inspection Chest Chest palpation & inspection: normal palpation of entire chest wall Resp Effort & Inspection: normal respiratory effort Neuro General: patient oriented x3 Office Procedures Flu Questionnaire Does the patient have a severe egg allergy?: No Does the patient have severe life threatening allergies?: No Does the patient have a fever or illness today?: No Has the patient ever had Guillain-[place] Syndrome?: No Has the patient ever had any past reaction to a flu shot?: No Results AMB Hemoglobin A1c AMB Hemoglobin A1c 5.9 % Last Edit by Blessing Mary CMA on 11/12/23 08 :28 Immunizations flu vacc [id number] 6mos up(PF) 60 mcg(15 mcgx4)/0.5 mL IM syringe Performing Provider: Nixon Washington MD [facility] Administered by: Blessing Mary CMA on 11/12/23 08:24 Dose Route Admin Location Dispensed Lot Number Expiration Date NDC Tattooer 0.5 mL IM Left Deltoid 0.5 mL [id number] 05/22/24 47602-331-32 [employer] VIS Given Date VIS Provided VIS Publication Date 11/12/23 Single Vaccine 21 Eligibility Eligibility Date Funding Source Not [facility] Eligible 11/12/23 Private Results Reviewed Results Reviewed: Laboratory Last Values Hgb A1c (Clinic) 5.9 % (4.0-6.0) 11/12/23 08:28 Assessment and Plan Assessment & Plan (1) Annual physical exam: Code(s): Z00.00 - Encounter for general adult medical examination without abnormal findings Plan: Blood work has been ordered. Flu shot administered. (2) Type 2 diabetes mellitus without complication, with no history of insulin use: Code(s): E11.9 - Type 2 diabetes mellitus without complications Plan: A1c is less than 6. Continue metformin at once a day. Farxiga has been discontinued. (3) Depression with anxiety: Code(s): F41.8 - Other specified anxiety disorders Plan: Condition is stable. Continue current medications. (4) Essential hypertension: Code(s): I10 - Essential (primary) hypertension Plan: Blood pressure is stable. Continue medications at same dosage. (5) Thrombosis of right popliteal vein: Comment: Needs repeat US by 11/30/21 Code(s): I82.431 - Acute embolism and thrombosis of right popliteal vein Plan: Continue anticoagulants. (6) Cognitive developmental delay: Code(s): F81.9 - Developmental disorder of scholastic skills, unspecified (7) Hypothyroidism: Code(s): E03.9 - Hypothyroidism, unspecified Qualifiers: Hypothyroidism type: due to Radha's thyroiditis Qualified Code(s): E03.8 - Other specified hypothyroidism; E06.3 - Autoimmune thyroiditis Orders: Orders Influenza [id number] Immunization Today Z23 - Encounter for immunization AMB Hemoglobin A1c Today Z13.9 - Encounter for screening, unspecified Coding Level of Care Code Est Pt Prev Care 18-39y([id number]) Diagnoses Annual physical exam Z00.00 Type 2 diabetes mellitus without complication, with no history of insulin use E11.9 Depression with anxiety F41.8 Essential hypertension I10 Thrombosis of right popliteal vein I82.431 Cognitive developmental delay F81.9 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
== END 2023-11-12 08:49 | disposition home or self-care (01) ==
PROVIDERS: Visit Provider Internal Medicine
DX: Z23 Encounter for immunization (principal); Z00.00 Encounter for general adult medical examination without abnormal findings; E11.9 Type 2 diabetes mellitus without complications; I10 Essential (primary) hypertension; I82.431 Acute embolism and thrombosis of right popliteal vein; F81.9 Developmental disorder of scholastic skills, unspecified; E03.8 Other specified hypothyroidism; E06.3 Autoimmune thyroiditis
CPT/HCPCS: 83036; 90471; 90686; 99395

== ENCOUNTER 2023-11-12 09:00 | Outpatient (REF) | payer MEDICARE, MEDICAID, SELFPAY ==
[2023-11-12 09:23] LABS: Hematocrit 40.1 % (37.0-47.0); Hemoglobin 13.2 g/dl (12.0-16.0); Mean Corpuscular HGB Conc 32.9 g/dl (31.0-35.0); Mean Corpuscular Hemoglobin 30.7 pg (27.0-33.0); Mean Corpuscular Volume 93.3 fL (80.0-98.0); Mean Platelet Volume 10.8 fL (9.4-12.3); Platelet Count 186 X10*3/uL (160-400); Red Cell Distribution Width 13.1 % (11.0-16.0); White Blood Count 6.2 X10*3/uL (4.8-10.8)
[2023-11-12 09:52] LABS: Alanine Aminotransferase 12 U/L (0-31); Albumin Level 4.5 g/dL (3.5-5.0); Alkaline Phosphatase 49 U/L (39-117); Anion Gap 12 (12-20); Aspartate Amino Transferase 20 U/L (5-31); Bilirubin Direct 0.1 mg/dL (0.0-0.5); Bilirubin Total 0.3 mg/dL (0.0-1.0); Blood Urea Nitrogen 20 mg/dL (9-16); Calcium 9.4 mg/dL (8.4-10.2); Carbon Dioxide 24 mmol/L (22-29); Chloride 109 mmol/L (96-108); Cholesterol 180 mg/dL (<200); Estimated Glomerular Filt Rate > 60; Glucose Random 114 mg/dL (60-115); HDL Cholesterol 43 mg/dL (>40); LDL Cholesterol Calculated 117 mg/dL (<100); Potassium 4.5 mmol/L (3.3-5.1); Sodium 140 mmol/L (135-145); Total Protein 7.5 g/dL (6.5-8.0); Triglycerides 100 mg/dL (<150)
[2023-11-12 10:07] LABS: Thyroid Stimulating Hormone 1.01 uIU/mL (0.32-4.0)
[2023-11-12 10:54] LABS: Appearance Urine Cloudy; Color Urine Yellow; Glucose Urine UA >=1000 mg/dL (Negative); Leukocyte Esterase Urine Negative (Negative); Nitrite Urine Negative (Negative); PH 5.5 (5.0-9.0); Specific Gravity - Urine >= 1.030 (1.005-1.025); UMIC TRIGGER UA YES; Urine Blood Negative (Negative); Urine Ketones Negative (Negative); Urine Protein Negative (Neg-Trace)
[2023-11-12 11:20] LABS: Creatinine Urine 105.42 mg/dL; Microalbum/Creatinine Ratio Ur 30.3 ug/mg cr (<30)
[2023-11-12 11:47] LABS: Bacteria Urine 2+ (None Seen); Hyaline Casts Urine 0-2 /LPF (0-2); RBC Urine 0-2 /HPF (0-2); WBC Urine 0-5 /HPF (0-5)
== END 2023-11-12 09:01 | disposition home or self-care (01) ==
LOC: HO.LAB 09:00
PROVIDERS: PCP Internal Medicine; Visit Provider Internal Medicine
DX: E11.9 Type 2 diabetes mellitus without complications (principal); E03.9 Hypothyroidism, unspecified
CPT/HCPCS: 36415; 80048; 80061; 80076; 81001; 82043; 82570; 84443; 85027

== ENCOUNTER 2024-05-12 08:55 | Outpatient (AMB) | payer MEDICARE, MEDICAID, SELFPAY ==
--- NOTE | 2024-05-12 08:57 | A.OFFPC_ITS ---
Vital Signs 05/12/24 09:00 Height 5 ft 2 in Weight 227 lb 8 oz BMI 41.6 BP 110/60 Blood Pressure Location Lt brachial Position Sitting Pulse 70 Pulse Source Pulse Oximeter Pulse Oximetry (%) 96 Oxygen Delivery Method Room Air Intake Visit Reasons: 6mth f/u Intake Note: Patient is here to follow up on DM, HTN, Asthma, Hypothyroidism. Administrative Underwriter Required: No Tire Balancer: Present Accompanied by: staff Allergies No Known Allergies Allergy (Mild, Verified 05/13/24 16:06) NOT APPLICABLE Medication List - Last Reconciled 05/13/24 by Nixon Washington MD acetaminophen ER (Tylenol 8 Hour) 650 mg PO Q6H PRN albuterol sulfate 90 mcg/actuation 2 puffs inhalation Q6-8H PRN apixaban (Eliquis) 5 mg PO BID aripiprazole (Abilify) 7.5 mg PO DAILY aripiprazole (Abilify) 15 mg PO BEDTIME buspirone 10 mg PO BID carvedilol 3.125 mg PO BID fluoride (sodium) 1.1% (PreviDent 5000 Ortho Defense) 1 appl dental BID fluoxetine 10 mg PO DAILY ibuprofen (IBU) 600 mg PO Q6H PRN Levoxyl (levothyroxine) 125 mcg PO DAILY 90 days NS metformin ER 500 mg PO DAILY omeprazole 20 mg PO DAILY valsartan 20 mg (1/2 x 40 mg) PO BID Tobacco use date assessed: 05/12/24 Dental Screening Dental Screen Date: 05/12/24 Did you have a dental visit in the last 12 months?: Yes Did you have a dental problem in the last 6 months where you did not have access to dental care?: No Was dental information given to patient?: Patient has dentist HPI 6mth f/u HPI Details 33-year-old [facility] medical conditions. She is accompanied by her caregiver. Patient's caregiver is requesting medications for her to lose weight. According to the caregiver, patient has tried diet and exercise with minimal weight loss. On asking the patient, she admits to dietary indiscretion. She does not exercise. Continues to work and able to do all her activities of daily living. [facility] Medical History Depression with anxiety Type 2 diabetes mellitus without complication, with no history of insulin use Morbid obesity Daytime somnolence Physical exam Urge urinary incontinence Anxiety Asthma Shortness of breath Obese Hypothyroidism Surgical History History of appendectomy Family History Father Diabetes Mother Diabetes Mental health disorder Maternal Uncle Throat cancer Social History Household Members: Caregiver Housing: House Alcohol intake: never Patient Tobacco Use Status: Never used Tobacco e-Cigarette/Vaping Use: Never Used Second Hand Smoke Exposure: No service: No Current occupational status: unemployed Cognitive needs: No Hearing needs: No Vision needs: Yes (glasses) Questionnaire PHQ-9 Over the last 2 weeks, how often have you been bothered by any of the following problems? 1. Little interest or pleasure in doing things: not at all 2. Feeling down, depressed, or hopeless: not at all 3. Trouble falling or staying asleep, or sleeping too much: not at all 4. Feeling tired or having little energy: not at all 5. Poor appetite or overeating: not at all 6. Feeling bad about yourself - or that you are a failure or have let yourself or your family down: not at all 7. Trouble concentrating on things, such as reading the newspaper or watching television: not at all 8. Moving or speaking so slowly that other people could have noticed. Or the opposite - being so fidgety or restless that you have been moving around a lot more than usual: not at all 9. Thoughts that you would be better off or of hurting yourself in some way: not at all Total score: 0 Depression Screening Interpretation: Negative Depression Screening Done: Yes Source: Developed by Drs. Robel Deras, Toya Zepeda, Young Craft and colleagues, with an educational victorino from [employer]. Thrive Questionnaire Date Thrive assessed: 05/12/24 I am a: Patient What is your living situation today?: I have a steady place to live Within the past 12 months, did the food you bought not last and you didn't have the money to get more?: Never true Within the past 12 months, did you worry whether your food would run out before you got money to buy more?: Never true Do you have trouble paying for medicines?: No Do you have trouble getting transportation to medical appointments?: No Do you have trouble paying your heating and electricity bill?: No Do you have trouble taking care of your child, family member or friend?: No Do you have trouble with day-to-day activities such as bathing, preparing meals, shopping, managing finances, etc.?: No Are you currently unemployed and looking for a job?: No Are you interested in more education?: No Currently or been in a relationship where the following occur: no concerns reported THRIVE Score: 0 AUDIT C Alcohol Use Questionnaire (AUDIT-C) 1. How often do you have a drink containing alcohol?: Never Total Score: 0 CHARO-7 AMB Questionnaire CHARO-7 Date CHARO - 7 assessed: 05/12/24 Feeling nervous, anxious, or on edge: 1 = Several days (has a therapy) Not being able to stop or control worryin = Not at all Worrying too much about different things: 0 = Not at all Trouble relaxin = Not at all Being so restless that it is hard to sit still: 0 = Not at all Becoming easily annoyed or irritable: 0 = Not at all Feeling afraid as if something awful might happen: 0 = Not at all Total CHARO-7 score (0-4 normal; 5-9 mild; 10-14 moderate; 15-21 severe): 1 Source: Developed by Drs. Robel Deras, Toya Zepeda, Young perea nd colleagues, with an educational victorino from [employer]. Physical exam (Primary Care) Vital Signs: Last Vital Signs Pulse 70 05/12/24 09:00 BP 110/60 05/12/24 09:00 Pulse Ox 96 05/12/24 09:00 Oxygen Delivery Method Room Air 05/12/24 09:00 BMI result Body Mass Index 41.6 Tobacco/Smoking Status: Tobacco use Status Tobacco use date assessed 05/12/24 05/12/24 09:14 Patient Tobacco Use Status Never used Tobacco 05/12/24 09:14 e-Cigarette/Vaping Use Never Used 05/12/24 09:14 PHQ-9: PHQ-9 Score PHQ-9: Total score 0 05/12/24 09:14 Depression Screening Interpretation: Negative Thrive Assessment: Date of Thrive Assessment Date Thrive assessed 05/12/24 05/12/24 09:14 Currently or been in a relationship where the following occur: no concerns reported Const General: cooperative and healthy appearing Nutritional Appearance: well nourished Orientation/consciousness: patient oriented x3 Limitations: no limitations HENMT Head: Yes normal to inspection Eyes General: appearance normal, both eyes and all related structures Neck Neck: Yes normal visual inspection Chest Chest palpation & inspection: normal palpation of entire chest wall Resp Effort & Inspection: normal respiratory effort Neuro General: patient oriented x3 Results AMB Hemoglobin A1c AMB Hemoglobin A1c 5.8 % Last Edit by KRUT Baker on 05/12/24 09:15 Results Reviewed Results Reviewed: Laboratory Last Values Hgb A1c (Clinic) 5.8 % (4.0-6.0) 05/12/24 08:57 Assessment and Plan Assessment & Plan (1) Type 2 diabetes mellitus without complication, with no history of insulin use: Code(s): E11.9 - Type 2 diabetes mellitus without complications Plan: Patient is not a candidate for Wegovy. Her A1c is in range. Continue to exercise and follow a 1500 ADA diet. Orders: Orders AMB Hemoglobin A1c 05/12/24 E11.9 - Type 2 diabetes mellitus without complications Basic Metabolic Panel 05/12/24 E11.9 - Type 2 diabetes mellitus without complications Complete Blood Count no Diff 05/12/24 E11.9 - Type 2 diabetes mellitus without complications Erythrocyte Sedimentation Rate 05/12/24 E11.9 - Type 2 diabetes mellitus wit hout complications Thyroid Stimulating Hormone 05/12/24 E11.9 - Type 2 diabetes mellitus without complications UA and rflx microscopic 05/12/24 E11.9 - Type 2 diabetes mellitus without complications Liver Panel 05/12/24 E11.9 - Type 2 diabetes mellitus without complications Lipid Panel 05/12/24 E11.9 - Type 2 diabetes mellitus without complications Medications: Refilled acetaminophen ER (Tylenol 8 Hour) 650 mg PO Q6H PRN 30 tabs 0RF pain albuterol sulfate 90 mcg/actuation 2 puffs inhalation Q6-8H PRN 8.5 grams 0RF shortness of breath or wheezing apixaban (Eliquis) 5 mg PO BID 56 tabs 2RF Levoxyl (levothyroxine) Dispense as written, brand medically necessary. Do not substitute 125 mcg PO DAILY 90 tabs 2RF 90 days NS E03.9 - Hypothyroidism, unspecified metformin ER 500 mg PO DAILY 90 tabs 0RF omeprazole 20 mg PO DAILY 90 caps 1RF valsartan 20 mg (1/2 x 40 mg) PO BID 90 tabs 0RF Coding Level of Care Code Est Pt Level 3 (40518) Diagnoses Type 2 diabetes mellitus without complication, with no history of insulin use E11.9
[2024-05-12 09:00] VITALS: BP 110/60; PULSE 70; O2SAT 96; BMI 41.6
== END 2024-05-12 10:14 | disposition home or self-care (01) ==
PROVIDERS: PCP Internal Medicine; Visit Provider Internal Medicine
DX: E11.9 Type 2 diabetes mellitus without complications (principal)
CPT/HCPCS: 83036; 99213

== ENCOUNTER 2024-05-12 10:25 | Outpatient (REF) | payer MEDICARE, MEDICAID, SELFPAY ==
[2024-05-12 11:01] LABS: Hematocrit 40.3 % (37.0-47.0); Hemoglobin 13.4 g/dl (12.0-16.0); Mean Corpuscular HGB Conc 33.3 g/dl (31.0-35.0); Mean Corpuscular Hemoglobin 31.1 pg (27.0-33.0); Mean Corpuscular Volume 93.5 fL (80.0-98.0); Mean Platelet Volume 10.7 fL (9.4-12.3); Platelet Count 192 X10*3/uL (160-400); Red Blood Count 4.31 X10*6/uL (4.20-5.50); Red Cell Distribution Width 13.1 % (11.0-16.0); White Blood Count 6.1 X10*3/uL (4.8-10.8)
[2024-05-12 11:42] LABS: Erythrocyte Sedimentation Rate 11 MM/HR (0-20)
[2024-05-12 11:54] LABS: Alanine Aminotransferase 25 U/L (0-31); Albumin Level 4.5 g/dL (3.5-5.0); Alkaline Phosphatase 52 U/L (39-117); Anion Gap 11 (12-20); Aspartate Amino Transferase 28 U/L (5-31); Bilirubin Direct 0.1 mg/dL (0.0-0.5); Bilirubin Total 0.4 mg/dL (0.0-1.0); Blood Urea Nitrogen 25 mg/dL (9-16); Calcium 9.8 mg/dL (8.4-10.2); Carbon Dioxide 28 mmol/L (22-29); Chloride 106 mmol/L (96-108); Cholesterol 240 mg/dL (<200); Estimated Glomerular Filt Rate > 60; Glucose Random 108 mg/dL (60-115); HDL Cholesterol 49 mg/dL (>40); LDL Cholesterol Calculated 159 mg/dL (<100); Potassium 4.6 mmol/L (3.3-5.1); Sodium 140 mmol/L (135-145); Total Protein 7.5 g/dL (6.5-8.0); Triglycerides 164 mg/dL (<150)
[2024-05-12 12:11] LABS: Thyroid Stimulating Hormone 0.54 uIU/mL (0.32-4.0)
[2024-05-12 13:07] LABS: Appearance Urine Cloudy; Color Urine Yellow; Glucose Urine UA >=1000 mg/dL (Negative); Leukocyte Esterase Urine Trace (Negative); Nitrite Urine Negative (Negative); UMIC TRIGGER UA YES; Urine Blood Negative (Negative); Urine Ketones Negative (Negative); Urine Protein Negative (Neg-Trace)
[2024-05-12 13:16] LABS: Bacteria Urine 2+ (None Seen); Hyaline Casts Urine 0-2 /LPF (0-2); RBC Urine 0-2 /HPF (0-2); WBC Urine 0-5 /HPF (0-5)
== END 2024-05-12 10:26 | disposition home or self-care (01) ==
LOC: HO.LAB 10:25
PROVIDERS: PCP Internal Medicine; Visit Provider Internal Medicine
DX: E11.9 Type 2 diabetes mellitus without complications (principal)
CPT/HCPCS: 36415; 80048; 80061; 80076; 81001; 81003; 84443; 85027; 85652

== ENCOUNTER 2024-07-08 15:13 | Outpatient (REF) | payer MEDICARE, MEDICAID, SELFPAY ==
[2024-07-08 16:16] LABS: Appearance Urine Turbid; Color Urine Yellow; Glucose Urine UA >=1000 mg/dL (Negative); Leukocyte Esterase Urine Negative (Negative); Nitrite Urine Negative (Negative); Specific Gravity - Urine >= 1.030 (1.005-1.025); UMIC TRIGGER UA YES; Urine Blood Negative (Negative); Urine Ketones Negative (Negative); Urine Protein Negative (Neg-Trace)
[2024-07-08 17:09] LABS: Bacteria Urine 4+ (None Seen); Hyaline Casts Urine 0-2 /LPF (0-2); RBC Urine 0-2 /HPF (0-2); Squamous Epithelial Cell Urine >20 /HPF (0-2); WBC Urine 0-5 /HPF (0-5)
== END 2024-07-08 15:14 | disposition home or self-care (01) ==
LOC: HO.LAB 15:13
PROVIDERS: PCP Internal Medicine; Visit Provider Internal Medicine
DX: E11.9 Type 2 diabetes mellitus without complications (principal)
CPT/HCPCS: 81001

== ENCOUNTER 2024-11-17 08:03 | Outpatient (AMB) | payer MEDICARE, MEDICAID, SELFPAY ==
--- NOTE | 2024-11-17 08:18 | MHC.PC.OV ---
Vital Signs 11/17/24 08:20 Height 5 ft 2 in Weight 235 lb 6 oz BMI 43.0 BP 120/70 Blood Pressure Location Lt brachial Position Sitting Pulse 73 Pulse Source Pulse Oximeter Pulse Oximetry (%) 98 Oxygen Delivery Method Room Air Intake Visit Reasons: Annual Exam - see comments Intake Note: Patient is here today for a physical. 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: No Building And Grounds Supervisor: Not Required per policy Accompanied by: Self / Same As Patient Allergies No Known Allergies Allergy (Mild, Verified 11/17/24 08:19) NOT APPLICABLE Medication List - Last Reconciled 11/17/24 by Pretty Burgos PA-C acetaminophen ER (Tylenol 8 Hour) 650 mg PO Q6H PRN albuterol sulfate 90 mcg/actuation 2 puffs inhalation Q6-8H PRN apixaban (Eliquis) 5 mg PO BID aripiprazole (Abilify) 7.5 mg (1/2 x 15 mg) PO DAILY aripiprazole (Abilify) 15 mg PO BEDTIME atorvastatin 10 mg PO BEDTIME buspirone 10 mg PO BID carvedilol 3.125 mg PO BID fluoxetine 10 mg PO DAILY ibuprofen (IBU) 600 mg PO Q6H PRN Levoxyl (levothyroxine) 125 mcg PO DAILY 90 days NS metformin ER 500 mg PO DAILY omeprazole 20 mg PO DAILY valsartan 20 mg (1/2 x 40 mg) PO BID Tobacco use date assessed: 11/17/24 Dental Screening Dental Screen Date: 05/12/24 FOR[facility]LY [facility], [facility] Medical History Depression with anxiety Type 2 diabetes mellitus without complication, with no history of insulin use Morbid obesity Daytime somnolence Physical exam Urge urinary incontinence Anxiety Asthma Shortness of breath Obese Hypothyroidism Surgical History History of cholecystectomy History of appendectomy Family History Father Diabetes Mother Diabetes Mental health disorder Maternal Uncle Throat cancer Social History Household Members: Caregiver Housing: House Alcohol intake: never Patient Tobacco Use Status: Never used Tobacco e-Cigarette/Vaping Use: Never Used Second Hand Smoke Exposure: No service: No Current occupational status: unemployed Cognitive needs: No Hearing needs: No Vision needs: Yes (glasses) Questionnaire PHQ-9 Over the last 2 weeks, how often have you been bothered by any of the following problems? 1. Little interest or pleasure in doing things: more than half the days 2. Feeling down, depressed, or hopeless: not at all 3. Trouble falling or staying asleep, or sleeping too much: not at all 4. Feeling tired or having little energy: more than half the days 5. Poor appetite or overeating: several days 6. Feeling bad about yourself - or that you are a failure or have let yourself or your family down: not at all 7. Trouble concentrating on things, such as reading the newspaper or watching television: not at all 8. Moving or speaking so slowly that other people could have noticed. Or the opposite - being so fidgety or restless that you have been moving around a lot more than usual: not at all 9. Thoughts that you would be better off or of hurting yourself in some way: not at all Total score: 5 Depression Screening Interpretation: Positive Depression Screening Done: Yes Source: Developed by Drs. Robel Deras, Toya Zepeda, Young Craft and colleagues, with an educational victorino from [employer]. Thrive Questionnaire Date Thrive assessed: 11/17/24 I am a: Patient What is your living situation today?: I have a steady place to live Within the past 12 months, did the food you bought not last and you didn't have the money to get more?: Sometimes True Within the past 12 months, did you worry whether your food would run out before you got money to buy more?: Sometimes True Do you have trouble paying for medicines?: No Do you have trouble getting transportation to medical appointments?: No Do you have trouble paying your heating and electricity bill?: No Do you have trouble taking care of your child, family member or friend?: No Do you have trouble with day-to-day activities such as bathing, preparing meals, shopping, managing finances, etc.?: No Are you currently unemployed and looking for a job?: No Are you interested in more education?: No Please select the resources that you would like help with: None Currently or been in a relationship where the following occur: No concerns reported THRIVE Score: 2 AUDIT C Alcohol Use Questionnaire (AUDIT-C) 1. How often do you have a drink containing alcohol?: Never Total Score: 0 CHARO-7 AMB Questionnaire CHARO-7 Date CHARO - 7 assessed: 11/17/24 Feeling nervous, anxious, or on edge: 0 = Not at all Not being able to stop or control worryin = Several days Worrying too much about different things: 1 = Several days Trouble relaxin = Not at all Being so restless that it is hard to sit still: 1 = Several days Becoming easily annoyed or irritable: 0 = Not at all Feeling afraid as if something awful might happen: 1 = Several days Total CHARO-7 score (0-4 normal; 5-9 mild; 10-14 moderate; 15-21 severe): 4 Source: Developed by Drs. Robel Deras, Toya Zepeda, Young Craft and colleagues, with an educational victorino from [employer]. Physical exam (Primary Care) Vital Signs: Last Vital Signs Pulse 73 11/17/24 08:20 BP 120/70 11/17/24 08:20 Pulse Ox 98 11/17/24 08:20 Oxygen Delivery Method Room Air 11/17/24 08:20 BMI result Body Mass Index 43.0 Tobacco/Smoking Status: Tobacco use Status Tobacco use date assessed 11/17/24 11/17/24 08:19 Patient Tobacco Use Status Never used Tobacco 11/17/24 08:19 e-Cigarette/Vaping Use Never Used 11/17/24 08:19 PHQ-9: PHQ-9 Score PHQ-9: Total score 5 11/17/24 11:00 Depression Screening Interpretation: Positive Thrive Assessment: Date of Thrive Assessment Date Thrive assessed 11/17/24 11/17/24 08:19 Currently or been in a relationship where the following occur: No concerns reported Results AMB Hemoglobin A1c AMB Hemoglobin A1c 5.7 % Last Edit by KURT Baker on 11/17/24 08:34 Results Reviewed Results Reviewed: Laboratory Last Values Hgb A1c (Clinic) 5.7 % (4.0-6.0) 11/17/24 08:20 Coding Level of Care Code Est Pt Prev Care [id number]) Diagnoses Annual physical exam Z00.00 Cognitive developmental delay F81.9 Type 2 diabetes mellitus without complication, with no history of insulin use E11.9 Morbid obesity with body mass index (BMI) of 40.0 to 49.9 E66.01 Essential hypertension I10 Anxiety F41.9 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 Mild persistent asthma without complication J45.30 Asthma complication type: uncomplicated Asthma persistence: persistent Asthma severity: mild Depression with anxiety F41.8 Hyperlipidemia E78.5 Assessment & Plan Assessment & Plan (1) Annual physical exam: Code(s): Z00.00 - Encounter for general adult medical examination without abnormal findings Category: Medical (2) Cognitive developmental delay: Code(s): F81.9 - Developmental disorder of scholastic skills, unspecified Category: Medical (3) Type 2 diabetes mellitus without complication, with no history of insulin use: Code(s): E11.9 - Type 2 diabetes mellitus without complications Category: Medical (4) Morbid obesity with body mass index (BMI) of 40.0 to 49.9: Code(s): E66.01 - Morbid (severe) obesity due to excess calories Category: Medical (5) Essential hypertension: Code(s): I10 - Essential (primary) hypertension Category: Medical (6) Anxiety: Code(s): F41.9 - Anxiety disorder, unspecified Category: Medical (7) Hypothyroidism: Code(s): E03.9 - Hypothyroidism, unspecified Category: Medical Qualifiers: Hypothyroidism type: due to Radha's thyroiditis Qualified Code(s): E03.8 - Other specified hypothyroidism; E06.3 - Autoimmune thyroiditis (8) Asthma: Code(s): J45.909 - Unspecified asthma, uncomplicated Category: Medical Qualifiers: Asthma complication type: uncomplicated Asthma persistence: persistent Asthma severity: mild Qualified Code(s): J45.30 - Mild persistent asthma, uncomplicated (9) Depression with anxiety: Code(s): F41.8 - Other specified anxiety disorders Category: Medical Plan: continue current anxiety/depression medication regimen and refill all medications (10) Hyperlipidemia: Code(s): E78.5 - Hyperlipidemia, unspecified Category: Medical Plan Plan - Evaluate and confirm continuation of current medication regimen. - Recheck patient?s weight and measure HbA1c levels. Todays visit A1C is 5.7. - Discuss potential medication for weight loss such as will go Wegovy 0.25 units weekly, considering the patient's history of myocardial infarction, obesity, DM and hyperlipidemia hx. - Address financial barriers to accessing weight management programs and explore available diet options that fit within her budget. - Refill all prescriptions. - Continue monitoring cardiopulmonary status Orders: Orders AMB Hemoglobin A1c Today Nixon Washington MD E11.9 - Type 2 diabetes mellitus without complications Medications: New buspirone 10 mg PO BID 60 tabs 2RF Pretty Burgos PA-C fluoxetine 10 mg PO DAILY 30 caps 2RF Pretty Burgos PA-C semaglutide (weight loss) (Wegovy) administer weeks 1 through 4 of therapy 0.25 mg (0.5 mL) subcut QWEEK 2 mL 2RF DM type II, morbid obesity, HLD Pretty Burgos PA-C E03.8 - Other specified hypothyroidism, E06.3 - Autoimmune thyroiditis, E11.9 - Type 2 diabetes mellitus without complications, E66.01 - Morbid (severe) obesity due to excess calories, E78.5 - Hyperlipidemia, unspecified, I10 - Essential (primary) hypertension aripiprazole (Abilify) 7.5 mg (1/2 x 15 mg) PO DAILY 30 tabs 2RF Pretty Burgos PA-C aripiprazole (Abilify) 15 mg PO BEDTIME 30 tabs 2RF Pretty Burgos PA-C carvedilol 3.125 mg PO BID 60 tabs 2RF Pretty Burgos PA-C Refilled acetaminophen ER (Tylenol 8 Hour) 650 mg PO Q6H PRN 30 tabs 0RF pain Pretty Burgos PA-C apixaban (Eliquis) 5 mg PO BID 56 tabs 2RF Pretty Burgos PA-C valsartan 20 mg (1/2 x 40 mg) PO BID 90 tabs 0RF Pretty Burgos PA-C omeprazole 20 mg PO DAILY 90 caps 1RF Pretty Burgos PA-C metformin ER 500 mg PO DAILY 90 tabs 0RF Pretty Burgos PA-C atorvastatin 10 mg PO BEDTIME 90 tabs 1RF Nixon Washington MD albuterol sulfate 90 mcg/actuation 2 puffs inhalation Q6-8H PRN 8.5 grams 0RF shortness of breath or wheezing Pretty Burgos PA-C Levoxyl (levothyroxine) Dispense as written, brand medically necessary. Do not substitute 125 mcg PO DAILY 90 days 90 tabs 2RF NS Pretty Burgos PA-C E03.9 - Hypothyroidism, unspecified Scribe Plan - Not visible on output: History of Present Illness The patient is a 34-year-old female presenting for her Annual Physical Exam. She is with her Caregiver at bedside who has concerns primarily related to weight management as part of her annual physical examination. She has been experiencing a progressive increase in weight despite following a diet and engaging in physical activities like walking and dancing. The issue began approximately one to two years ago and continues to pose a challenge. Previously, she was referred to a patient account specialist; however, due to financial constraints, she could not adhere to the recommended diet plan. Despite being on metformin for diabetes management, her most recent A1c was 5.8, indicating well-controlled blood glucose levels. The patient also has a history of a myocardial infarction with a previously reduced ejection fraction on the left side, which has since improved to 60-65%. She has reported occasional shortness of breath but is experiencing weight-related limitations to her physical activity. Current pharmacological management includes metformin for Diabetes, Eliquis for pulmonary embolism history, valsartan for hypertension, atorvastatin for hyperlipidemia, carvedilol for hypertension/heart protection, albuterol for asthma and she will need a refill, levothyroxine for thyroid disease and anxiety and depression medication which include Abilify, fluoxetine and buspirone. The patient has voiced fear and anxiety regarding her weight which exacerbates her depressive symptoms, treated primarily through fluoxetine and Abilify therapy. The patient reports asthma with episodic exacerbations; however, symptoms have improved recently. She maintains regular appointments for her psychiatric concerns and has expressed concerns about medication cost and accessibility for weight management. Social History - Caregiver involvement providing daily support. 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 - Housing: Resides with and is supported by a living provider from [facility]. - Nutrition: Attempts to adhere to a diet with portion control, includes brown rice, salads, air-fried foods, minimized sugar and carbohydrates. - Physical activity: Walking regularly and dances for physical activity. - Mental health: Struggles with weight affecting her mental health, requires additional support for dietary adherence. Review of Systems - Respiratory: Reports shortness of breath associated with increased weight. - General: Denies chest pain, denies leg swelling, denies back pain, denies constipation, denies black or bloody stools. - Hematologic: Denies need for flu or COVID vaccine. Physical Exam Appearance: Alert. Oriented X3. No acute distress. Obesed pt. Head: Normal external exam. Normocephalic. Atraumatic. No [place] signs noted. No raccoon eyes noted Eyes: Pupils are equal, round, and reactive to light. Extraocular movements intact. Conjunctiva and sclera normal. Eyelids normal. Ears: External auditory canal normal. Tympanic membranes normal. Throat: Pharynx normal. Uvula midline. Moist mucous membranes. No trismus noted. No drooling noted. No muffled voice noted. Neck: Normal inspection. Neck supple. Full range of motion. No adenopathy. Thyroid Normal. No meningeal signs. No neck mass noted. Cardiovascular: Normal heart rate and rhythm. Heart sound normal. No murmurs noted. Pulses normal throughout. Respiratory: No respiratory distress. Painless inspiration. Breath sounds normal. No wheezes/rales/rhonchi noted. Chest nontender. No accessory muscle usage noted or decreased air movement noted. Abdomen: Soft and nontender. Bowel sounds normal in all 4 quadrants. No distention noted. No organomegaly noted. No visible injury noted. Back: No costovertebral angle tenderness. Full range of motion noted. Skin: Skin warm and dry. Normal skin color. Normal skin turgor. No rashes/lesions/lacerations noted. Extremities: No lower extremity edema. Extremities exhibit normal range of motion. Extremities nontender. Neuro: Oriented X 3. No motor deficit. No sensory deficit. Reflexes normal. Results - Labs: HbA1c level at 5.8 from April 2023. - patient's last weight was 227 in April today she is at 02:35 she has gained 8 lb since her last visit. - patient had an echocardiogram on 01/28/2023 which revealed an EF of 60-65%. Plan - Evaluate and confirm continuation of current medication regimen. - Recheck patient?s weight and measure HbA1c levels. - Discuss potential medication for weight loss such as will go we 0.25 units weekly, considering the patient's history of myocardial infarction, obesity, DM and hyperlipidemia hx. - Address financial barriers to accessing weight management programs and explore available diet options that fit within her budget. - Refill all prescriptions. - Continue monitoring cardiopulmonary status Patient was informed and verbally consented to the use of an ambient scribe for clinic note documentation during this visit. Discussion Notes During our discussion, I outlined the challenges pertaining to obtaining coverage for pharmacological aids for weight loss, considering the patient?s history of myocardial infarction. We reviewed her current medications and validated ongoing management with metformin for diabetes, which has yielded favorable HbA1c levels. I emphasized that the primary focus should be on maintaining overall health, encouraging regular physical activity, and monitoring caloric intake given the financial barriers to formal weight loss programs. Risks associated with alternative weight loss medications were considered, with an understanding conveyed of insurance limitations to newer therapeutic agents. The session concluded with an agreement on a continued healthy lifestyle effort, enhanced with obtainable dietary adjustments and medication adherence. Patient Instructions - Continue healthy eating habits and manage portion sizes. - Maintain regular exercise, incorporate daily walking and physical activity. - Take all current prescribed medications for diabetes and mental health as directed. - Will add Wegovy for DM, HLD, Cardiac dx and morbid obesity - Refills will be sent to Pharmacy - Attend follow-up appointments in six months for ongoing health evaluation. - Consult with electrician front for a copy of the visit summary.
[2024-11-17 08:20] VITALS: BP 120/70; PULSE 73; O2SAT 98; BMI 43.0
== END 2024-11-17 09:02 | disposition home or self-care (01) ==
PROVIDERS: PCP Internal Medicine; Visit Provider Internal Medicine
DX: Z00.00 Encounter for general adult medical examination without abnormal findings (principal); E11.9 Type 2 diabetes mellitus without complications; E66.01 Morbid (severe) obesity due to excess calories; Z68.41 Body mass index [BMI] 40.0-44.9, adult; F81.9 Developmental disorder of scholastic skills, unspecified; I10 Essential (primary) hypertension; F41.9 Anxiety disorder, unspecified; E03.8 Other specified hypothyroidism; E06.3 Autoimmune thyroiditis; J45.30 Mild persistent asthma, uncomplicated; F41.8 Other specified anxiety disorders; E78.5 Hyperlipidemia, unspecified

== ENCOUNTER → 2024-11-17 08:03 | Outpatient (BNVA) | payer MEDICARE, MEDICAID, SELFPAY | PROVIDERS: PCP Internal Medicine; Visit Provider Internal Medicine | DX: Z00.00 Encounter for general adult medical examination without abnormal findings (principal); F81.9 Developmental disorder of scholastic skills, unspecified; E11.9 Type 2 diabetes mellitus without complications; E66.01 Morbid (severe) obesity due to excess calories; I10 Essential (primary) hypertension; F41.9 Anxiety disorder, unspecified; E03.8 Other specified hypothyroidism; J45.30 Mild persistent asthma, uncomplicated; F41.8 Other specified anxiety disorders; E78.5 Hyperlipidemia, unspecified | CPT/HCPCS: 83036; 96127; 99395 ==

== ENCOUNTER 2025-05-18 08:37 | Outpatient (AMB) | payer MEDICARE, MEDICAID, SELFPAY ==
--- NOTE | 2025-05-18 08:54 | A.OFFPC_ITS ---
Vital Signs 05/18/25 08:56 Height 5 ft 2 in Weight 218 lb 2 oz BMI 39.9 BP 132/68 Blood Pressure Location Lt brachial Position Sitting Pulse 75 Pulse Source Pulse Oximeter Temp 96.6 F L Temp Source Temporal Artery Scan Pulse Oximetry (%) 95 Oxygen Delivery Method Room Air Intake Visit Reasons: 6mth f/u Intake Note: Patient is here to follow up on DM, HLD, Asthma. Job Honer Required: No Liquid Yeast Supervisor: Not Required per policy Accompanied by: Self / Same As Patient Allergies No Known Allergies Allergy (Mild, Verified 05/18/25 08:56) NOT APPLICABLE Tobacco use date assessed: 05/18/25 Dental Screening Dental Screen Date: 05/18/25 Did you have a dental visit in the last 12 months?: Yes Did you have a dental problem in the last 6 months where you did not have access to dental care?: No Was dental information given to patient?: Patient has dentist [facility] Medical History Depression with anxiety Type 2 diabetes mellitus without complication, with no history of insulin use Morbid obesity Daytime somnolence Physical exam Urge urinary incontinence Anxiety Asthma Shortness of breath Obese Hypothyroidism Surgical History History of cholecystectomy History of appendectomy Family History Father Diabetes Mother Diabetes Mental health disorder Maternal Uncle Throat cancer Social History Household Members: Caregiver Housing: House Alcohol intake: never Patient Tobacco Use Status: Never used Tobacco e-Cigarette/Vaping Use: Never Used Second Hand Smoke Exposure: No service: No Current occupational status: unemployed Cognitive needs: No Hearing needs: No Vision needs: Yes (glasses) Questionnaire PHQ-9 Over the last 2 weeks, how often have you been bothered by any of the following problems? 1. Little interest or pleasure in doing things: not at all 2. Feeling down, depressed, or hopeless: not at all 3. Trouble falling or staying asleep, or sleeping too much: not at all 4. Feeling tired or having little energy: not at all 5. Poor appetite or overeating: not at all 6. Feeling bad about yourself - or that you are a failure or have let yourself or your family down: not at all 7. Trouble concentrating on things, such as reading the newspaper or watching television: not at all 8. Moving or speaking so slowly that other people could have noticed. Or the opposite - being so fidgety or restless that you have been moving around a lot m ore than usual: not at all 9. Thoughts that you would be better off or of hurting yourself in some way: not at all Total score: 0 Depression Screening Interpretation: Negative Depression Screening Done: Yes Source: Developed by Drs. Robel Deras, Toya Zepeda, Young Craft and colleagues, with an educational victorino from [employer]. Thrive Questionnaire Date Thrive assessed: 05/18/25 I am a: Patient What is your living situation today?: I have a steady place to live Within the past 12 months, did the food you bought not last and you didn't have the money to get more?: Never true Within the past 12 months, did you worry whether your food would run out before you got money to buy more?: Never true Do you have trouble paying for medicines?: No Do you have trouble getting transportation to medical appointments?: No Do you have trouble paying your heating and electricity bill?: No Do you have trouble taking care of your child, family member or friend?: No Do you have trouble with day-to-day activities such as bathing, preparing meals, shopping, managing finances, etc.?: No Are you currently unemployed and looking for a job?: No Are you interested in more education?: No Please select the resources that you would like help with: None Currently or been in a relationship where the following occur: I choose not to answer THRIVE Score: 0 AUDIT C Alcohol Use Questionnaire (AUDIT-C) 1. How often do you have a drink containing alcohol?: Never Total Score: 0 CHARO-7 AMB Questionnaire CHARO-7 Date CHARO - 7 assessed: 05/18/25 Feeling nervous, anxious, or on edge: 0 = Not at all Not being able to stop or control worryin = Not at all Worrying too much about different things: 0 = Not at all Trouble relaxin = Not at all Being so restless that it is hard to sit still: 0 = Not at all Becoming easily annoyed or irritable: 0 = Not at all Feeling afraid as if something awful might happen: 0 = Not at all Total CHARO-7 score (0-4 normal; 5-9 mild; 10-14 moderate; 15-21 severe): 0 Source: Developed by Drs. Robel Deras, Toya Zepeda, Young Craft and colleagues, with an educational victorino from [employer]. Physical exam (Primary Care) Vital Signs: Last Vital Signs Temp 96.6 F L 05/18/25 08:56 Pulse 75 05/18/25 08:56 BP 132/68 05/18/25 08:56 Pulse Ox 95 05/18/25 08:56 Oxygen Delivery Method Room Air 05/18/25 08:56 BMI result Body Mass Index 39.9 Tobacco/Smoking Status: Tobacco use Status Tobacco use date assessed 05/18/25 05/18/25 08:57 Patient Tobacco Use Status Never used Tobacco 05/18/25 08:57 e-Cigarette/Vaping Use Never Used 05/18/25 08:57 PHQ-9: PHQ-9 Score PHQ-9: Total score 0 05/18/25 09:31 Depression Screening Interpretation: Negative Thrive Assessment: Date of Thrive Assessment Date Thrive assessed 05/18/25 05/18/25 08:57 Currently or been in a relationship where the following occur: I choose not to answer Results AMB Hemoglobin A1c AMB Hemoglobin A1c 5.6 % Last Edit by KURT Baker on 05/18/25 09:17 Results Reviewed Results Reviewed: Laboratory Last Values Hgb A1c (Clinic) 5.6 % (4.0-6.0) 05/18/25 08:54 Coding Assessment & Plan Assessment & Plan Orders: Orders AMB Hemoglobin A1c 05/18/25 E11.9 - Type 2 diabetes mellitus without complications
[2025-05-18 08:56] VITALS: BP 132/68; PULSE 75; TEMP 35.9; O2SAT 95; BMI 39.9
--- OUTSIDE RECORDS SUMMARY | 2025-05-18 09:04 | XMS_ITS | Encounter Summary ---
Author Organization [facility] Address [address] [place] [address] Care Team Providers Care Ship Pilot Dispatcher Name Role Phone Nixon Washington MD Primary Care Provider [phone]- [phone] Reason for Visit * Reason Onset Date Comments Med Refill 05/17/2025 Encounter Details Date Type Department Care Team (Late st Contact Info) Description 05/17/2025 Telephone [facility] [address] [facility] [address] [place] [phone] María Elena Vázquez MD [address] [place] [address] Med Refill Social History Tobacco Use Types Packs/Day Years Used Date Smoking Tobacco: Never Smokeless Tobacco: Never Alcohol Use Standard Drinks/Week Comments Never 0 (1 standard drink = 0.6 oz pur e alcohol) Comments Unknown Sex and Gender Information Value Date Recorded Sex Assigned at Not on file Legal Sex Female 9:06 AM EST Gender Identity Not on file Sexual Orientation Not on file documented as of this encounter Ordered Prescriptions Prescription Sig Dispense Quantity Refills Last Filled Start Date End Date dapagliflozin propanediol (Farxiga) 10 mg tablet Take 1 tablet (10 mg total) by mouth 1 (one) time each day. 90 tablet 3 05/17/2025 sacubitriL-valsarta n (Entresto) 24-26 mg per tablet Take 1 tablet by mouth 2 (two) times a day. 180 tablet 3 05/17/2025 spironolactone (ALDACTONE) 25 mg tablet Take 1 tablet (25 mg total) by mouth 1 (one) time each day. 90 tablet 3 05/17/2025 documented in this encounter Progress Notes * Raven Mota MA - 05/17/2025 10:36 AM EDT Renewed. * Omar Fuentes - 05/17/2025 9:24 AM EDT Refill request for Spironolactone 25 mg once a day, Farxiga 10 mg once a day, Entresto 24-26 mg once a day, and Eliqius 5 mg once a day all for a 90 day supply and please send these to [facility] on [address] [place] [address] in [place]. documented in this encounter Plan of Treatment Upcoming Encounters Date Type Department Care Team (Late st Contact Info) Description 06/06/2025 7:40 AM EDT Office Visit [facility] [address] [phone] Darian Lopez NP [address] [place] [address] documented as of this encounter Visit Diagnoses Not on filedocumented in this encounter Discontinued Medications Medication Sig Discontinue Reason Start Date End Da te sacubitriL-valsartan (Entresto) 24-26 mg per tablet TAKE 1 TABLET BY MOUTH TWICE A DAY Reorder 12/08/2024 05/17/2025 spironolactone (ALDACTONE) 25 mg tablet TAKE 1 TABLET BY MOUTH DAILY Reorder 02/02/2025 05/17/2025 dapagliflozin propanediol (Farxiga) 10 mg tablet TAKE 1 TABLET BY MOUTH DAILY Reorder 02/02/2025 05/17/2025 documented as of this encounter Care Teams Ship Pilot Dispatcher Relationship Specialty Start Date End Date Nixon Washington MD [address] [place] [address] PCP - General 09/24/22 documented as of this encounter
== END 2025-05-18 09:37 | disposition home or self-care (01) ==
LOC: HO.HMCH 08:38
PROVIDERS: PCP Internal Medicine; Visit Provider Internal Medicine
DX: E11.9 Type 2 diabetes mellitus without complications (principal)

== ENCOUNTER → 2025-05-18 08:37 | Outpatient (BNVA) | payer MEDICARE, MEDICAID, SELFPAY | PROVIDERS: PCP Internal Medicine; Visit Provider Internal Medicine | DX: E66.01 Morbid (severe) obesity due to excess calories (principal); Z68.39 Body mass index [BMI] 39.0-39.9, adult; I10 Essential (primary) hypertension; E11.9 Type 2 diabetes mellitus without complications; Z71.3 Dietary counseling and surveillance | CPT/HCPCS: 83036; 99212 ==

== ENCOUNTER 2025-08-29 10:24 | Outpatient (AMB) | payer MEDICARE, MEDICAID, SELFPAY ==
--- NOTE | 2025-08-29 10:32 | MHC.PC.OV ---
Vital Signs 08/29/25 10:33 Height 5 ft 2 in Weight 229 lb 4 oz BMI 41.9 BP 126/80 Blood Pressure Location Lt brachial Position Sitting Pulse 68 Pulse Source Pulse Oximeter Temp 97.0 F Temp Source Temporal Artery Scan Pulse Oximetry (%) 96 Oxygen Delivery Method Room Air Intake Visit Reasons: ears infection Accompanied by: caregiver Allergies No Known Allergies Allergy (Mild, Verified 08/29/25 10:38) NOT APPLICABLE Tobacco use date assessed: 08/29/25 Dental Screening Dental Screen Date: 08/29/25 Did you have a dental visit in the last 12 months?: Yes Did you have a dental problem in the last 6 months where you did not have access to dental care?: No Was dental information given to patient?: Patient has dentist HPI HPI Comments History of Present Illness Details The patient is a 34-year-old female presenting with hearing loss and ear discomfort. The hearing loss began approximately four days ago, primarily affecting the right ear, with associated symptoms of rattling sounds and diminished hearing capability. The patient denies any previous episodes of similar symptoms and has not had her ears flushed in the past. Upon examination, the right ear was found to have erythema and possible infection, while the left ear showed significant wax impaction. The patient reports no fever or chills accompanying the ear symptoms. The patient is scheduled to start a new medication, Wegovy, for weight management, and there was a discussion about the safety of home ear flushing kits. The patient is also due for a flu vaccination, which was discussed during the visit. [facility] Medical History Depression with anxiety Type 2 diabetes mellitus without complication, with no history of insulin use Morbid obesity Daytime somnolence Physical exam Urge urinary incontinence Anxiety Asthma Shortness of breath Obese Hypothyroidism Surgical History History of cholecystectomy History of appendectomy Family History Father Diabetes Mother Diabetes Mental health disorder Maternal Uncle Throat cancer Social History Household Members: Caregiver Housing: House Alcohol intake: never Patient Tobacco Use Status: Never used Tobacco e-Cigarette/Vaping Use: Never Used Second Hand Smoke Exposure: No service: No Current occupational status: unemployed Cognitive needs: No Hearing needs: No Vision needs: Yes (glasses) Questionnaire PHQ-9 Over the last 2 weeks, how often have you been bothered by any of the following problems? 1. Little interest or pleasure in doing things: not at all 2. Feeling down, depressed, or hopeless: not at all 3. Trouble falling or staying asleep, or sleeping too much: not at all 4. Feeling tired or having little energy: not at all 5. Poor appetite or overeating: not at all 6. Feeling bad about yourself - or that you are a failure or have let yourself or your family down: not at all 7. Trouble concentrating on things, such as reading the newspaper or watching television: not at all 8. Moving or speaking so slowly that other people could have noticed. Or the opposite - being so fidgety or restless that you have been moving around a lot more than usual: not at all 9. Thoughts that you would be better off or of hurting yourself in some way: not at all Total score: 0 Depression Screening Interpretation: Negative Depression Screening Done: Yes Source: Developed by Drs. Robel Deras, Toya Zepeda, Young Craft and colleagues, with an educational victorino from [employer]. Thrive Questionnaire Date Thrive assessed: 05/18/25 I am a: Patient What is your living situation today?: I have a steady place to live Within the past 12 months, did the food you bought not last and you didn't have the money to get more?: Never true Within the past 12 months, did you worry whether your food would run out before you got money to buy more?: Never true Do you have trouble paying for medicines?: No Do you have trouble getting transportation to medical appointments?: No Do you have trouble paying your heating and electricity bill?: No Do you have trouble taking care of your child, family member or friend?: No Do you have trouble with day-to-day activities such as bathing, preparing meals, shopping, managing finances, etc.?: No Are you currently unemployed and looking for a job?: No Are you interested in more education?: No Please select the resources that you would like help with: None Currently or been in a relationship where the following occur: I choose not to answer THRIVE Score: 0 AUDIT C Alcohol Use Questionnaire (AUDIT-C) 1. How often do you have a drink containing alcohol?: Never 3. How often do you have six or more drinks on one occasion?: Never Total Score: 0 CHARO-7 AMB Questionnaire CHARO-7 Date CHARO - 7 assessed: 05/18/25 Feeling nervous, anxious, or on edge: 0 = Not at all Not being able to stop or control worryin = Not at all Worrying too much about different things: 0 = Not at all Trouble relaxin = Not at all Being so restless that it is hard to sit still: 0 = Not at all Becoming easily annoyed or irritable: 0 = Not at all Feeling afraid as if something awful might happen: 0 = Not at all Total CHARO-7 score (0-4 normal; 5-9 mild; 10-14 moderate; 15-21 severe): 0 Source: Developed by Drs. Robel Deras, Toya Zepeda, Young Craft and colleagues, with an educational victorino from [employer]. Review of Systems Const Details: Positives besides what was mentioned in HPI are in BOLD Constitutional: No Weight Change, No Fever, No Chills, No Night Sweats, No Fatigue, No Malaise ENT/Mouth: No Hearing Changes, No Ear Pain, No Nasal Congestion, No Sinus Pain, No Hoarseness, No sore throat, No Rhinorrhea, No Swallowing Difficulty Eyes: No Eye Pain, No Swelling, No Redness, No Foreign Body, No Discharge, No Vision Changes Cardiovascular: No Chest Pain, No SOB, No PND, No Dyspnea on Exertion, No Orthopnea, No Claudication, No Edema, No Palpitations Respiratory: No Cough, No Sputum, No Wheezing, No Smoke Exposure, No Dyspnea Gastrointestinal: No Nausea, No Vomiting, No Diarrhea, No Constipation, No Pain, No Heartburn, No Anorexia, No Dysphagia, No Hematochezia, No Melena, No Flatulence, No Jaundice Genitourinary: No Dysmenorrhea, No DUB, No Dyspareunia, No Dysuria, No Urinary Frequency, No Hematuria, No Urinary Incontinence, No Urgency, No Flank Pain, No Urinary Flow Changes, No Hesitancy Musculoskeletal: No Arthralgias, No Myalgias, No Joint Swelling, No Joint Stiffness, No Back Pain, No Neck Pain, No Injury History Skin: No Skin Lesions, No Pruritis, No Hair Changes, No Breast/Skin Changes, No Nipple Discharge Neuro: No Weakness, No Numbness, No Paresthesias, No Loss of Consciousness, No Syncope, No Dizziness, No Headache, No Coordination Changes, No Recent Falls Psych: No Anxiety/Panic, No Depression, No Insomnia, No Personality Changes, No Delusions, No Rumination, No SI/HI/AH/VH, No Social Issues, No Memory Changes, No Violence/Abuse Hx., No Eating Concerns Heme/Lymph: No Bruising, No Bleeding, No Transfusions History, No Lymphadenopathy Endocrine: No Polyuria, No Polydipsia, No Temperature Intolerance Physical exam (Primary Care) Vital Signs: Last Vital Signs Temp 97.0 F 08/29/25 10:33 Pulse 68 08/29/25 10:33 BP 126/80 08/29/25 10:33 Pulse Ox 96 08/29/25 10:33 Oxygen Delivery Method Room Air 08/29/25 10:33 BMI result Body Mass Index 41.9 Tobacco/Smoking Status: Tobacco use Status Tobacco use date assessed 08/29/25 08/29/25 10:41 Patient Tobacco Use Status Never used Tobacco 08/29/25 10:32 e-Cigarette/Vaping Use Never Used 08/29/25 10:32 PHQ-9: PHQ-9 Score PHQ-9: Total score 0 08/29/25 10:54 Depression Screening Interpretation: Negative Thrive Assessment: Date of Thrive Assessment Date Thrive assessed 05/18/25 08/29/25 10:32 Currently or been in a relationship where the following occur: I choose not to answer Const Other: Pertinent findings are in BOLD GENERAL APPEARANCE NAD, activity normal for age, well developed/ well nourished, no cyanosis, pallor, or diaphoresis. EYES lids/conjunctiva normal. EARS/NOSE/THROAT Mucous membranes moist, nares normal, lips/teeth normal uvula midline without oral pharyngeal erythema, exudate or swelling TMs normal bilaterally. No lymphangitis/lymphedema. HEAD/NECK normocephalic atraumatic, no facial trauma, neck is supple. Right ear with signis of inflamed tympanic membrane. Left ear with cerumen impaciton. RESPIRATORY respiratory effort normal, speaks in full sentences, no tripod position, no accessory muscle use. Lungs clear to auscultation without rhonchi, wheezes, rales CARDIAC Regular rate and rhythm, no edema. ABDOMINAL Soft, ND/NT. No evidence of fluid wave. No pulsatile masses on exam, rebound tenderness, Meraz sign or pain over Mcburney's point. MUSCLES/EXTREMITIES No abnormal range of motion, no swelling. SKIN Warm, pink and dry. No rashes, dermatoses, petechiae or lesions. NEUROLOGICAL Speech is clear and appropriate. Normal level of consciousness. Gait and coordination are normal. 5/5 strength in all extremities. PSYCH Normal mood and affect. Judgement/competence is appropriate Office Procedures Flu Questionnaire Does the patient have a severe egg allergy?: No Does the patient have severe life threatening allergies?: No Does the patient have a fever or illness today?: No Has the patient ever had Guillain-Poway Syndrome?: No Has the patient ever had any past reaction to a flu shot?: No Results AMB Hemoglobin A1c AMB Hemoglobin A1c 6.1 % Last Edit by Kaye Greenberg CMA on 08/29/25 10:44 Immunizations Fluarix [id number] (PF) 45 mcg (15 mcg x 3)/0.5 mL IM syringe Performing Provider: Sally Bowden MD [facility] Administered by: Kaye Greenberg CMA on 08/29/25 11:10 Dose Route Admin Location Dispensed Lot Number Expiration Date [facility] Casket Liner 0.5 mL IM Right Deltoid 0.5 mL [id number] 05/22/26 [id number] [employer] VIS Given Date VIS Provided VIS Publication Date 08/29/25 Single Vaccine 24 Eligibility Eligibility Date Funding Source Not [facility] Eligible 08/29/25 Private Results Reviewed Results Reviewed: Laboratory Last Values Hgb A1c (Clinic) 6.1 % (4.0-6.0) H 08/29/25 10:44 Coding Level of Care Code Est Pt Level 3 (09883) Diagnoses Otitis media H66.90 Cerumen impaction H61.20 Time Spent (min) 20 Assessment & Plan Assessment & Plan (1) Otitis media: Comment: Right ear Code(s): H66.90 - Otitis media, unspecified, unspecified ear Category: Medical Plan: - Prescribed amoxicillin for 7 days. to treat the infection. - Advised to monitor symptoms and return if no improvement. (2) Cerumen impaction: Comment: Left ear Code(s): H61.20 - Impacted cerumen, unspecified ear Category: Medical Plan: - Ear drops prescribed to soften wax before flushing. - Scheduled follow-up for ear flushing to remove wax. Plan I discussed with the patient the presence of an ear infection and wax impaction, recommending antibiotics and ear drops as initial treatment. We planned a follow-up visit for ear flushing after the infection resolves. The safety of home ear flushing kits was also discussed, and a flu vaccination was recommended. Orders: Orders AMB Hemoglobin A1c Today Z13.9 - Encounter for screening, unspecified Influenza 6087-3634 Immunization Today Z23 - Encounter for immunization Medications: New amoxicillin 875 mg PO BID 14 tabs 0RF carbamide peroxide 6.5% (Debrox) 5 drps otic (ear) left DAILY 15 mL 0RF 4 days
[2025-08-29 10:33] VITALS: BP 126/80; PULSE 68; TEMP 36.1; O2SAT 96; BMI 41.9
--- OUTSIDE RECORDS SUMMARY | 2025-08-29 12:33 | XMS_ITS | Clinical Summary ---
Author Organization [address] [place] [address] [place] [phone] Phone Care Team Providers Care Cost Control Specialist Name Role Phone Nixon Washington MD Primary Care Provider [phone] Allergies Active Allergy Reactions Criticality Noted Date Comments Other 12/05/2024 mosquito Medications Eliquis 5 mg tablet TAKE 1 TABLET BY MOUTH TWICE A DAY 56 tablet 3 4 Active ARIPiprazole (ABILIFY) 15 mg tablet Take 1 tablet (15 mg total) by mouth 1 (one) time each day. Active levothyroxine (SYNTHROID, LEVOTHROID) 125 mcg tablet Take 1 tablet (125 mcg total) by mouth 1 (one) time each day. Active metFORMIN XR (GLUCOPHAGE-XR) 500 mg 24 hr tablet Take 1 tablet (500 mg total) by mouth 1 (one) time each day. Active cloNIDine (CATAPRES) 0.1 mg tablet Take 1 tablet (0.1 mg total) by mouth 1 (one) time each day. Active cloNIDine (CATAPRES) 0.1 mg tablet Take 5 tablets (0.5 mg total) by mouth 2 (two) times a day. Active albuterol HFA (PROAIR HFA ; PROVENTIL HFA ; VENTOLIN HFA) 90 mcg/actuation inhaler Inhale 2 puffs by mouth every 6 (six) hours if needed for wheezing. Active spironolactone (ALDACTONE) 25 mg tablet Take 1 tablet (25 mg total) by mouth 1 (one) time each day. 90 tablet 3 5 Active sacubitriL-valsa rtan (Entresto) 24-26 mg per tablet Take 1 tablet by mouth 2 (two) times a day. 180 tablet 3 5 Active dapagliflozin propanediol (Farxiga) 10 mg tablet Take 1 tablet (10 mg total) by mouth 1 (one) time each day. 90 tablet 3 5 Active busPIRone (BUSPAR) 10 mg tablet Take 2 tablets (20 mg total) by mouth 2 (two) times a day. Active omeprazole (PriLOSEC) [address] capsule Take 1 capsule (20 mg total) by mouth 1 (one) time each day. Do not crush or chew. Active FLUoxetine (PROzac) 20 mg capsule Take 1 capsule (20 mg total) by mouth 1 (one) time each day. Active carvediloL (COREG) 6.25 mg tablet Take 1 tablet (6.25 mg total) by mouth 2 (two) times a day with meals. 180 each 1 5 06/06/20 26 Active sodium chloride (OCEAN) 0.65 % nasal spray Administer 1 spray into each nostril if needed (dry nose). 15 mL 5 08/20/20 26 Active trimethoprim-brunilda ymyxin b (POLYTRIM) ophthalmic solution Administer 1 drop into the right eye 4 (four) times a day for 5 days. 10 mL 5 08/25/20 25 Active Problems Problem Noted Date Diagnosed Date Hypertension 12/05/2024 Assessment & Plan (06/06/2025 4:23 PM EDT): I am going to be increasing the patient's carvedilol to 6.25 mg p.o. twice daily. Please keep checking blood pressure measurements at home. Assessment & Plan (12/05/2024 11:59 AM EST): Patient's blood pressure is well-controlled at the exam today. Continue current medication regimen. Hyperlipidemia 12/05/2024 Assessment & Plan (06/06/2025 4:23 PM EDT): Will update lipid panel. Would like LDL to be under 100. Assessment & Plan (12/05/2024 11:59 AM EST): Patient has LDL draw from Assessment & Plan (12/05/2024 11:59 AM EST): Will draw lipid panel. Spoke to patient at length about adhering to a cardiac healthy diet. Patient states she understands. Orders: Lipid panel; Future Snoring 12/05/2024 Assessment & Plan (12/05/2024 11:59 AM EST): Will give referral to sleep medicine. Orders: Ambulatory referral to Sleep Medicine; Future Pulmonary embolism ([facility] V24, [facility] V28) Overview (10/14/2024): Last Assessment & Plan: I have refilled Eliquis 5mg bid for this indication for the year but from here forward, pt should get refills through PCP HFrEF (heart failure with re duced ejection fraction) ([facility] V24, [facility] V28) 10/20/2022 Overview (06/06/2025): -Secondary to nonischemic cardiomyopathy - Presented with weight gain, worsening shortness of breath, cough, lower extremity edema to in late August 2022 - Was immediately transferred to [facility] after being found to have a severely reduced ejection fraction on bedside echo-this is where I met her for the first time - Advanced heart failure was also consulted and she was seen by Dr. Wang -Formal echocardiogram at [facility] on 09/22/2022 showed severe, global LV systolic dysfunction with ejection fraction 20 to 30%, significantly decreased LV function from echocardiogram in May 2021when her EF was normal - Left heart cardiac cath on 09/26/2022 showed normal coronary arteries with elevated LVEDP of 22 mmHg - Right heart cath on 09/26/2022 showed RA pressure of 2 mmHg, PA pressure of 24 over 40 mmHg with a mean of 12 mmHg, wedge of 5 mmHg, cardiac output of 5.03 L/min with index of 2.4 L/min/m , PVR of 1.4 Wood unit - Cardiac MRI on 09/25/2022 showed interestingly improvement in LV systolic function to 52% with normal regional wall motion, normal right ventricular systolic function with ejection fraction 57%, normal biatrial size, no delayed gadolinium enhancement -Most recent echocardiogram on 01/21/2023 showed complete recovery of ejection fraction at around 60 to 65% with grossly normal regional wall motion-though endocardial definition was suboptimal however in spite of that, I think I was able to tell for the most part that EF was normal, normal RV size and systolic function, no hemodynamically significant valve disease, normal left ventricular diastolic function Assessment & Plan (06/06/2025 4:22 PM EDT): Euvolemic on exam today. Continue current medical management with Entresto 24 x 26 mg twice daily, Farxiga 10 mg daily, spironolactone 25 mg daily, carvedilol has been increased to 6.25 mg p.o. twice daily.; patient also utilizing CPAP now. Please continue to limit sodium consumption and weigh yourself daily. Reach out if you gain more than 2 pounds in a day or 5 pounds in a week. Assessment & Plan (12/05/2024 11:59 AM EST): Patient is euvolemic on exam. Continue current medical management with Entresto, Farxiga, spironolactone, carvedilol. I would like the patient to check her weights daily. Patient was unable to do a sleep study, however I do think that she would benefit from this. Encounters Date Type Department Care Team Description 08/20/2025 4:31 PM EDT - 08/20/2025 7:11 PM EDT Emergency Emergency [address] [place] [address] Mustapha Santos MD Epistaxis (Primary Dx); Acute bacterial conjunctivitis of left eye Discharge Disposition: Home or Self Care 08/17/2025 5:37 PM EDT - 08/17/2025 11:03 PM EDT Emergency Emergency [address] [place] [address] Catherine Thomas MD Other headache syndrome (Primary Dx); Lightheadedness Discharge Disposition: Home or Self Care 06/07/2025 Telephone [facility] [address] [place] [id number] Darian Lopez NP 06/06/2025 7:40 AM EDT Office Visit [facility] - [facility] [address] [facility] [address] [place] [address] Darian Lopez NP HFrEF (heart failure with reduced ejection fraction) ([facility] V24, [facility] V28) (Primary Dx); Hyperlipidemia, unspecified hyperlipidemia type; Hypertension, unspecified type from Last 3 Months Medical History Medical History Date Comments Hypothyroidism DX:Hypothyroidis m Cognitive developmental delay DX :Cognitive developmental delay Morbid obesity ([facility] V24, [facility] V28) DX:Morbid obesity ([facility]) Class 2 obesity DX:Class 2 obesi ty NM, acute, non ST segment el evation ([facility] V24, [facility] V28) CHF (congestive heart failur e) ([facility] V24, [facility] V28) PE (pulmonary thromboembolis m) ([facility] V24, [facility] V28) Family History Medical History Relation Name Comments Coronary artery disease Father repo rted heart attack, but unclear if he had CHF Relation Name Status Comments Father Social History Tobacco Use Types Packs/Day Years Used Date Smoking Tobacco: Never Smokeless Tobacco: Never Alcohol Use Standard Drinks/Week Comments Never 0 (1 standard drink = 0.6 oz pur e alcohol) Comments Unknown Sex and Gender Information Value Date Recorded Sex Assigned at Not on file Legal Sex Female 9:06 AM EST Gender Identity Not on file Sexual Orientation Not on file Obstetrics History Last Filed Vital Signs Vital Sign Reading Time Taken Comments Blood Pressure 128/82 08/20/2025 4:25 PM EDT Pulse 96 08/20/2025 4:25 PM EDT Temperature 37 C (98.6 F) 08/20/2025 6:00 PM EDT Respiratory Rate 12 08/20/2025 6:00 PM EDT Oxygen Saturation 96% 08/20/2025 4:25 PM EDT Inhaled Oxygen Concentration - - Weight 98.9 kg (218 lb) 08/20/2025 4:25 PM EDT Height 154.9 cm (5' 1 ) 08/20/2025 4:25 PM EDT Body Mass Index 41.19 08/20/2025 4:25 PM EDT Plan of Treatment Health Maintenance Due Date Last Done Comments Cervical Cancer Screening: Pap Smear 2009 Hepatitis B Vaccines (2 of 3 - 19+ 3-dose series) 05/11/2010 04/13/2010 HPV Vaccines (1 - 3-dose SCDM series) 2015 Cholesterol Screening (Lipid Panel) 10/26/2022 HIV Screening 10/26/2022 Hepatitis C Screening 10/26/2022 Medicare Annual Wellness Visit 10/26/2022 Social Influencers of Health Screening 10/26/2022 Depression Screening 11/23/2024 Influenza Vaccine (#1) 2025 , 11/12/2023, 08/31/2022, Additional history exists Hypertension/CHF/CAD Annual BMP Blood Test 08/20/2026 08/20/2025, 08/17/2025, 12/06/2024 DTaP,Tdap,and Td Vaccines (4 - Td or Tdap) 10/13/2028 10/13/2018, 06/16/2008, 04/16/2004 RSV Immunization Adult Patients (1 - 1-dose 75+ series) 2063 COVID-19 Vaccine Completed 08/30/2024, 12/2021, 12/23/2020, Additional history exists HIB Vaccines Aged Out No longer eligi ble based on patient's age to complete this topic Hepatitis A Vaccines Aged Out No long er eligible based on patient's age to complete this topic IPV Vaccines Aged Out No longer eligi ble based on patient's age to complete this topic MMR Vaccines Aged Out No longer eligi ble based on patient's age to complete this topic Meningococcal ACWY Vaccine Aged Out N o longer eligible based on patient's age to complete this topic Meningococcal B Vaccine Aged Out No l onger eligible based on patient's age to complete this topic Pneumococcal Vaccine: Pediatrics (0 to 5 Years) and At-Risk Patients (6 to 49 Years) Aged Out No longer eligible based on patient's age to complete this topic RSV Immunization Patients Under 20 months Aged Out No longer eligible based on patient's age to complete this topic Varicella Vaccines Aged Out No longer eligible based on patient's age to complete this topic Procedures Procedure Name Priority Date/Time Associated Diagnosis Comments CBC WITH AUTO DIFFERENTIAL STAT 08/20/2025 5:55 PM EDT CBC AND DIFFERENTIAL STAT 08/20/2025 5:55 PM EDT ACTIVATED PARTIAL THROMBOPLASTIN TIME STAT 08/20/2025 5:55 PM EDT PROTHROMBIN TIME WITH INR STAT 08/20/2025 5:55 PM EDT BASIC METABOLIC PANEL STAT 08/20/2025 5:55 PM EDT ECG ANNOTATED 08/18/2025 CT HEAD WO CONTRAST STAT 08/17/2025 8 :15 PM EDT TROPONIN I HIGH SENSITIVITY STAT 08/17/2025 7:37 PM EDT HCG, SERUM, QUALITATIVE STAT Add-on 08/17/2025 4:51 PM EDT CBC WITH AUTO DIFFERENTIAL STAT 08/17/2025 4:51 PM EDT MAGNESIUM STAT 08/17/2025 4:51 PM EDT BASIC METABOLIC PANEL STAT 08/17/2025 4:51 PM EDT CBC AND DIFFERENTIAL STAT 08/17/2025 4:51 PM EDT ECG 12-LEAD STAT 08/17/2025 4:48 PM EDT ECG 12-LEAD Routine 06/06/2025 4:23 PM EDT HFrEF (heart failure with reduced ejection fraction) (CMS/HCC V24, CMS/HCC V28) Hyperlipidemia, unspecified hyperlipidemia type Hypertension, unspecified type from Last 3 Months Results * (ABNORMAL) CBC auto differential (08/20/2025 5:55 PM EDT) Only the most recent of2 resultswithin the time period is included. WBC 14.3(H) 4.8 - 10.8 K/mcL LAB HEMETOLOGY METHOD 08/20/2025 6:14 PM [facility] RBC 3.90 3.80 - 4.80 M/mcL LAB HEMETOLOGY METHOD 08/20/2025 6:14 PM [facility] Hemoglobin 11.2(L) 11.5 - 16.0 g/dL LAB HEMETOLOGY METHOD 08/20/2025 6:14 PM [facility] Hematocrit 35.4 35.0 - 47.0 % LAB HEMETOLOGY METHOD 08/20/2025 6:14 PM [facility] MCV 91.5 79.0 - 98.0 FL LAB HEMETOLOGY METHOD 08/20/2025 6:14 PM [facility] MCH 28.9 27.0 - 32.0 pcg LAB HEMETOLOGY METHOD 08/20/2025 6:14 PM [facility] MCHC 31.6(L) 32.0 - 37.0 g/dL LAB HEMETOLOGY METHOD 08/20/2025 6:14 PM [facility] RDW 13.9 11.0 - 15.0 % LAB HEMETOLOGY METHOD 08/20/2025 6:14 PM [facility] Platelets 225 130 - 400 K/mcL LAB HEMETOLOGY METHOD 08/20/2025 6:14 PM [facility] MPV 10.6 7.0 - 11.0 FL LAB HEMETOLOGY METHOD 08/20/2025 6:14 PM [facility] NRBC 0.1 <1.0 % LAB HEMETOLOGY METHOD 08/20/2025 6:14 PM [facility] NRBC Absolute 0.02 <0.10 K/mcL LAB HEMETOLOGY METHOD 08/20/2025 6:14 PM [facility] Neutrophils Relative 73.3 % LAB HEMETOLOGY METHOD [facility] Lymphocytes Relative 14.3 % LAB HEMETOLOGY METHOD 08/20/2025 6:14 PM [facility] Monocytes Relative 10.5 % LAB HEMETOLOGY METHOD 08/20/2025 6:14 PM [facility] Eosinophils Relative 0.5 % LAB HEMETOLOGY METHOD 08/20/2025 6:14 PM [facility] Basophils Relative 0.3 % LAB HEMETOLOGY METHOD 08/20/2025 6:14 PM [facility] Immature Granulocytes Relative 1.1 % LAB HEMETOLOGY METHOD 08/20/2025 6:14 PM [facility] Neutrophils Absolute 10.47(H) 1.50 - 7.00 K/mcL LAB HEMETOLOGY METHOD 08/20/2025 6:14 PM [facility] Lymphocytes Absolute 2.05 1.00 - 5.00 K/mcL LAB HEMETOLOGY METHOD 08/20/2025 6:14 PM [facility] Monocytes Absolute 1.50(H) 0.20 - 1.00 K/mcL LAB HEMETOLOGY METHOD 08/20/2025 6:14 PM [facility] Eosinophils Absolute 0.07 0.00 - 0.50 K/mcL LAB HEMETOLOGY METHOD 08/20/2025 6:14 PM [facility] Basophils Absolute 0.05 0.00 - 0.20 K/mcL LAB HEMETOLOGY METHOD 08/20/2025 6:14 PM [facility] Immature Granulocytes Absolute 0.16(H) 0.00 - 0.03 K/mcL LAB HEMETOLOGY METHOD 08/20/2025 6:14 PM [facility] Blood Venous blood specimen / Unknown Venipuncture / Unknown 08/20/2025 5:55 PM EDT 08/20/2025 6:02 PM EDT us Mustapha Santos MD LAB BLOOD ORDERABLES Final Resul t Performing Organization Address City/[facility]/ZIP Co de Phone Number [facility] [address] [place] [address], [place] [phone] * APTT (08/20/2025 5:55 PM EDT) aPTT 34.6 24.1 - 39.3 sec LAB COAGULATION METHOD 08/20/2025 6:19 PM EDT [facility] Blood Venous blood specimen / Unknown Venipuncture / Unknown 08/20/2025 5:55 PM EDT 08/20/2025 6:02 PM EDT us Mustapha Santos MD LAB BLOOD ORDERABLES Final Resul t Performing Organization Address [facility]/ZIP Co de Phone Number [facility] [address] [place] [address], [place] [phone] * Protime-INR (08/20/2025 5:55 PM EDT) Protime 13.8 10.6 - 13.9 sec LAB COAGULATION METHOD 08/20/2025 6:19 PM EDT [facility] INR 1.1 LAB COAGULATION METHOD 08/20/2025 6:19 PM EDT [facility] Blood Venous blood specimen / Unknown Venipuncture / Unknown 08/20/2025 5:55 PM EDT 08/20/2025 6:02 PM EDT us Mustapha Santos MD LAB BLOOD ORDERABLES Final Resul t Performing Organization Address [facility]/ZIP Co de Phone Number [facility] [address] [place] [address], [place] [phone] * Basic Metabolic Panel (BMP) (08/20/2025 5:55 PM EDT) Only the most recent of2 resultswithin the time period is included. Sodium 141 133 - 145 mmol/L LAB CHEMISTRY METHOD 08/20/2025 6:31 PM [facility] Potassium 4.4 3.5 - 5.5 mmol/L LAB CHEMISTRY METHOD 08/20/2025 6:31 PM [facility] Chloride 108 96 - 110 mmol/L LAB CHEMISTRY METHOD 08/20/2025 6:31 PM [facility] CO2 25 21 - 32 mmol/L LAB CHEMISTRY METHOD 08/20/2025 6:31 PM [facility] Anion Gap 8 3 - 11 LAB CHEMISTRY METHOD 08/20/2025 6:31 PM [facility] Glucose 81 70 - 100 mg/dL LAB CHEMISTRY METHOD 08/20/2025 6:31 PM [facility] BUN 18 5 - 25 mg/dL LAB CHEMISTRY METHOD 08/20/2025 6:31 PM [facility] Creatinine 1.02 0.50 - 1.10 mg/dL LAB CHEMISTRY METHOD 08/20/2025 6:31 PM [facility] eGFR 73 >=60 mL/min/1. 73m2 LAB CHEMISTRY METHOD 08/20/2025 6:31 PM [facility] Comment:Calculation based on the Chronic Kidney Disease Epidemiology Collaboration (CKD-EPI) equation refit without adjustment for race. BUN/Creatinine Ratio 17.6 LAB CHEMISTRY METHOD 08/20/2025 6:31 PM [facility] Calcium 9.3 8.5 - 10.5 mg/dL LAB CHEMISTRY METHOD 08/20/2025 6:31 PM [facility] Blood Venous blood specimen / Unknown Venipuncture / Unknown 08/20/2025 5:55 PM EDT 08/20/2025 6:02 PM EDT Mustapha Santos MD LAB BLOOD ORDERABLES Final Resul t [facility] [address] [place] [address], * ECG-Annotated (08/18/2025) Provider Onbase ECG ORDERABLES Final Result * CT Head wo Contrast (08/17/2025 8:15 PM EDT) Anatomical Region Laterality Modality Head and Neck Computed Tomogra phy 08/17/2025 8:36 PM EDT Impressions 08/17/2025 8:36 PM EDT 1. No acute intracranial findings. This document has been electronically signed by: Ray Leroy MD on 08/17/2025 20:36:47 Narrative 08/17/2025 8:36 PM EDT INDICATION: new type of headache (posterior) CT head without contrast Comparison: None provided Findings: No intra-axial mass, midline shift, hydrocephalus, or acute hemorrhage. No significant atrophy-like change or white matter disease. The visualized paranasal sinuses and mastoid air cells are normal. The orbits are unremarkable. There is no acute fracture. Procedure Note Ray Leroy MD - 08/17/2025 INDICATION: new type of headache (posterior) CT head without contrast Comparison: None provided Findings: No intra-axial mass, midline shift, hydrocephalus, or acute hemorrhage. No significant atrophy-like change or white matter disease. The visualized paranasal sinuses and mastoid air cells are normal. The orbits are unremarkable. There is no acute fracture. IMPRESSION: 1. No acute intracranial findings. This document has been electronically signed by: Ray Leroy MD on 08/17/2025 20:36:47 Catherine Thomas MD IMG CT PROCEDURES Final Result * Troponin I High Sensitivity (08/17/2025 7:37 PM EDT) High Sensitivity Troponin I <3 <=54 ng/L LAB CHEMISTRY METHOD 08/17/2025 8:50 PM EDT [facility] Blood Venous blood specimen / Unknown Venipuncture / Unknown 08/17/2025 7:37 PM EDT 08/17/2025 8:17 PM EDT Narrative [facility] - 08/17/2025 8:50 PM EDT High levels of biotin in samples may falsely decrease hsTroponin values. Use caution when interpreting hsTroponin results in patients taking biotin who exhibit renal impairment (eGFR <60) or in patients taking more than 20 mg/day of biotin. us Catherine Thomas MD LAB BLOOD ORDERABLES Final Resul t Performing Organization Address City/[facility]/ZIP Co de Phone Number [facility] [address] [place] [address], [place] [phone] * hCG Qualitative (08/17/2025 4:51 PM EDT) [facility] hCG Qual Negative Negative 08/17/2025 8:01 PM EDT [facility] Blood Venous blood specimen / Unknown Venipuncture / Unknown 08/17/2025 4:51 PM EDT 08/17/2025 5:12 PM EDT us Catherine Thomas MD LAB BLOOD ORDERABLES Final Resul t [facility] [address] [place] [address], [place] [phone] * Magnesium (08/17/2025 4:51 PM EDT) [facility] Magnesium 2.2 1.9 - 2.6 mg/dL LAB CHEMISTRY METHOD 08/17/2025 5:34 PM EDT [facility] Blood Venous blood specimen / Unknown Venipuncture / Unknown 08/17/2025 4:51 PM EDT 08/17/2025 5:12 PM EDT us Catherine Thomas MD LAB BLOOD ORDERABLES Final Resul t [facility] [address] [place] [address], [place] [phone] * ECG 12 lead (08/17/2025 4:48 PM EDT) Only the most recent of2 resultswithin the time period is included. Ventricular Rate ECG 78 BPM GEMUSE Atrial Rate 78 BPM GEMUSE P-R Interval 150 ms GEMUSE QRS Duration 74 ms GEMUSE Q-T Interval 368 ms GEMUSE QTc 419 ms GEMUSE P Wave [place] 36 degrees GEMUSE R [place] 40 degrees GEMUSE T [place] 30 degrees GEMUSE ECG Interpretation Normal sinus rhythm Normal ECG When compared with ECG of 06-JUN-2025 08:20, No significant change was found Confirmed by YUKI RUDD ([id number]) on 08/18/2025 1:21:44 PM GEMUSE 08/17/2025 4:48 PM EDT 08/18/2025 1:21 PM EDT us Catherine Thomas MD ECG ORDERABLES Final Result Performing Organization Address City/[facility] Co de Phone Number GEMUSE from Last 3 Months Insurance MEDICARE MEDICAID - [place] Care Teams Cost Control Specialist Relationship Specialty Start Date End Date Nixon Washington MD [facility] [address] [facility] [id number] PCP - General 09/24/22
== END 2025-08-29 11:13 | disposition home or self-care (01) ==
LOC: HO.HMCH 10:25
PROVIDERS: PCP Internal Medicine; Visit Provider Internal Medicine
DX: H66.91 Otitis media, unspecified, right ear (principal); H61.22 Impacted cerumen, left ear; Z23 Encounter for immunization; Z13.9 Encounter for screening, unspecified

== ENCOUNTER → 2025-08-29 10:24 | Outpatient (BNVA) | payer MEDICARE, MEDICAID, SELFPAY | PROVIDERS: PCP Internal Medicine; Visit Provider Internal Medicine | DX: H66.91 Otitis media, unspecified, right ear (principal); H61.21 Impacted cerumen, right ear; Z23 Encounter for immunization | CPT/HCPCS: 83036; 90471; 90656; 96127; 99212 ==

== ENCOUNTER 2025-09-07 08:41 | Outpatient (AMB) | payer MEDICARE, MEDICAID, SELFPAY ==
--- NOTE | 2025-09-07 08:51 | MHC.PC.OV ---
Vital Signs 09/07/25 08:52 Height 5 ft 2 in Weight 232 lb 6 oz BMI 42.5 BP 124/76 Blood Pressure Location Lt brachial Position Sitting Pulse 73 Pulse Source Pulse Oximeter Temp 97.0 F Temp Source Temporal Artery Scan Pulse Oximetry (%) 99 Oxygen Delivery Method Room Air Intake Visit Reasons: 1 week f/u Allergies No Known Allergies Allergy (Mild, Verified 09/07/25 08:54) NOT APPLICABLE Tobacco use date assessed: 09/07/25 Dental Screening Dental Screen Date: 08/29/25 Did you have a dental visit in the last 12 months?: Yes Did you have a dental problem in the last 6 months where you did not have access to dental care?: No Was dental information given to patient?: Patient has dentist HPI HPI Comments History of Present Illness Details The patient is a 34-year-old female presenting with earwax impaction. She reported improvement in her ear condition after completing antibiotics, which resolved her hearing difficulties. Eardrops were used five times to manage the earwax impaction. The patient is planning a cruise in two days and wanted to confirm her ear condition would not affect her travel. [facility] Medical History Depression with anxiety Type 2 diabetes mellitus without complication, with no history of insulin use Morbid obesity Daytime somnolence Physical exam Urge urinary incontinence Anxiety Asthma Shortness of breath Obese Hypothyroidism Surgical History History of cholecystectomy History of appendectomy Family History Father Diabetes Mother Diabetes Mental health disorder Maternal Uncle Throat cancer Social History Household Members: Caregiver Housing: House Alcohol intake: never Patient Tobacco Use Status: Never used Tobacco e-Cigarette/Vaping Use: Never Used Second Hand Smoke Exposure: No service: No Current occupational status: unemployed Cognitive needs: No Hearing needs: No Vision needs: Yes (glasses) Questionnaire PHQ-9 Over the last 2 weeks, how often have you been bothered by any of the following problems? 1. Little interest or pleasure in doing things: not at all 2. Feeling down, depressed, or hopeless: not at all 3. Trouble falling or staying asleep, or sleeping too much: not at all 4. Feeling tired or having little energy: not at all 5. Poor appetite or overeating: not at all 6. Feeling bad about yourself - or that you are a failure or have let yourself or your family down: not at all 7. Trouble concentrating on things, such as reading the newspaper or watching television: not at all 8. Moving or speaking so slowly that other people could have noticed. Or the opposite - being so fidgety or restless that you have been moving around a lot more than usual: not at all 9. Thoughts that you would be better off or of hurting yourself in some way: not at all Total score: 0 Depression Screening Interpretation: Negative Depression Screening Done: Yes Source: Developed by Drs. Robel Deras, Toya Zepeda, Young Craft and colleagues, with an educational victorino from [employer]. Thrive Questionnaire Date Thrive assessed: 05/18/25 I am a: Patient What is your living situation today?: I have a steady place to live Within the past 12 months, did the food you bought not last and you didn't have the money to get more?: Never true Within the past 12 months, did you worry whether your food would run out before you got money to buy more?: Never true Do you have trouble paying for medicines?: No Do you have trouble getting transportation to medical appointments?: No Do you have trouble paying your heating and electricity bill?: No Do you have trouble taking care of your child, family member or friend?: No Do you have trouble with day-to-day activities such as bathing, preparing meals, shopping, managing finances, etc.?: No Are you currently unemployed and looking for a job?: No Are you interested in more education?: No Please select the resources that you would like help with: None Currently or been in a relationship where the following occur: I choose not to answer THRIVE Score: 0 AUDIT C Alcohol Use Questionnaire (AUDIT-C) 1. How often do you have a drink containing alcohol?: Never 3. How often do you have six or more drinks on one occasion?: Never Total Score: 0 CHARO-7 AMB Questionnaire CHARO-7 Date CHARO - 7 assessed: 05/18/25 Feeling nervous, anxious, or on edge: 0 = Not at all Not being able to stop or control worryin = Not at all Worrying too much about different things: 0 = Not at all Trouble relaxin = Not at all Being so restless that it is hard to sit still: 0 = Not at all Becoming easily annoyed or irritable: 0 = Not at all Feeling afraid as if something awful might happen: 0 = Not at all Total CHARO-7 score (0-4 normal; 5-9 mild; 10-14 moderate; 15-21 severe): 0 Source: Developed by Drs. Robel Deras, Toya Zepeda, Young Craft and colleagues, with an educational victorino from [employer]. Review of Systems Const Details: NA Physical exam (Primary Care) Vital Signs: Last Vital Signs Temp 97.0 F 09/07/25 08:52 Pulse 73 09/07/25 08:52 BP 124/76 09/07/25 08:52 Pulse Ox 99 09/07/25 08:52 Oxygen Delivery Method Room Air 09/07/25 08:52 BMI result Body Mass Index 42.5 Tobacco/Smoking Status: Tobacco use Status Tobacco use date assessed 09/07/25 09/07/25 08:56 Patient Tobacco Use Status Never used Tobacco 09/07/25 08:56 e-Cigarette/Vaping Use Never Used 09/07/25 08:56 PHQ-9: PHQ-9 Score PHQ-9: Total score 0 09/07/25 08:56 Depression Screening Interpretation: Negative Thrive Assessment: Date of Thrive Assessment Date Thrive assessed 05/18/25 09/07/25 08:56 Currently or been in a relationship where the following occur: I choose not to answer Const Other: Pertinent findings are in BOLD GENERAL APPEARANCE NAD, activity normal for age, well developed/ well nourished, no cyanosis, pallor, or diaphoresis. EYES lids/conjunctiva normal. EARS/NOSE/THROAT Mucous membranes moist, nares normal, lips/teeth normal uvula midline without oral pharyngeal erythema, exudate or swelling TMs normal bilaterally. No lymphangitis/lymphedema. HEAD/NECK normocephalic atraumatic, no facial trauma, neck is supple. RESPIRATORY respiratory effort normal, speaks in full sentences, no tripod position, no accessory muscle use. Lungs clear to auscultation without rhonchi, wheezes, rales CARDIAC Regular rate and rhythm, no edema. ABDOMINAL Soft, ND/NT. No evidence of fluid wave. No pulsatile masses on exam, rebound tenderness, Meraz sign or pain over Mcburney's point. MUSCLES/EXTREMITIES No abnormal range of motion, no swelling. SKIN Warm, pink and dry. No rashes, dermatoses, petechiae or lesions. NEUROLOGICAL Speech is clear and appropriate. Normal level of consciousness. Gait and coordination are normal. 5/5 strength in all extremities. PSYCH Normal mood and affect. Judgement/competence is appropriate Ears: cleared after ear flush. Coding Level of Care Code Est Pt Level 3 (58520) Procedure Only Diagnoses Cerumen impaction H61.20 Time Spent (min) 30 Assessment & Plan Assessment & Plan (1) Cerumen impaction: Comment: Left ear Code(s): H61.20 - Impacted cerumen, unspecified ear Category: Medical Plan: Ear flush completed with no complications in clinic today 09/07/2025. Plan I discussed with the patient the successful removal of earwax impaction through ear flushing. We reviewed her recent completion of antibiotics for otitis media, noting the resolution of symptoms, and confirmed no further treatment was necessary. The patient was reassured that her ear condition should not interfere with her upcoming cruise plans.
[2025-09-07 08:52] VITALS: BP 124/76; PULSE 73; TEMP 36.1; O2SAT 99; BMI 42.5
--- OUTSIDE RECORDS SUMMARY | 2025-09-07 09:30 | XMS_ITS | Clinical Summary ---
Author Organization [address] [place] [address] [place] [id number] Phone Care Team Providers Care Beam Dyer Operator Name Role Phone Nixon Washington MD Primary Care Provider [phone] Allergies Active Allergy Reactions Criticality Noted Date [...] referral to Sleep Medicine; Future Pulmonary embolism ([facility] V24, [facility] V28) Overview (10/14/2024): Last Assessment & Plan: I have refilled Eliquis 5mg bid for this indication for the year but from here forward, pt should get refills through PCP HFrEF (heart failure with re duced ejection fraction) ([facility] V24, [facility] V28) 10/20/2022 Overview (06/06/2025): -Secondary to nonischemic cardiomyopathy - Presented with weight gain, worsening shortness of breath, cough, lower extremity edema to [facility] in late August 2022 - Was immediately transferred to [facility] after being found to have a severely reduced ejection fraction on bedside echo-this is where I met her for the first time - Advanced heart failure was also consulted and she was seen by Dr. Wang -Formal echocardiogram at [facility] on 09/22/2022 showed severe, global LV systolic [...] EDT - 08/20/2025 7:11 PM EDT Emergency [facility] [address] [place] [address] Mustapha Santos MD Epistaxis (Primary Dx); Acute bacterial conjunctivitis of left eye Discharge Disposition: Home or Self Care 08/17/2025 5:37 PM EDT - 08/17/2025 11:03 PM EDT Emergency [facility] [address] [place] [address] Catherine Thomas MD Other headache syndrome (Primary Dx); Lightheadedness Discharge Disposition: Home or Self Care 06/07/2025 Telephone [facility] [address] [place] [address] Darian Lopez NP from Last 3 Months Medical History Medical History Date Comments Hypothyroidism DX:Hypothyroidis m Cognitive developmental delay DX :Cognitive developmental delay Morbid obesity ([facility] V24, [facility] V28) DX:Morbid obesity (HCC) Class 2 obesity DX:Class 2 obesi ty FL, acute, non ST segment el evation ([facility] V24, [facility] V28) CHF (congestive heart failur e) ([facility] V24, [facility] V28) PE (pulmonary thromboembolis m) ([facility] V24, [facility] V28) Family History Medical History Relation Name [...] ECG 12-LEAD STAT 08/17/2025 4:48 PM EDT from Last 3 Months Results * (ABNORMAL) CBC auto differential (08/20/2025 5:55 PM EDT) Only the most recent of2 resultswithin the time period is included. WBC 14.3(H) 4.8 - 10.8 K/mcL LAB HEMETOLOGY METHOD 08/20/2025 6:14 PM EDT [facility] RBC 3.90 3.80 - 4.80 M/mcL LAB HEMETOLOGY METHOD 08/20/2025 6:14 PM EDT [facility] Hemoglobin 11.2(L) 11.5 - 16.0 g/dL LAB HEMETOLOGY METHOD 08/20/2025 6:14 PM EDT [facility] Hematocrit 35.4 35.0 - 47.0 % LAB HEMETOLOGY METHOD 08/20/2025 6:14 PM EDT [facility] MCV 91.5 79.0 - 98.0 FL LAB HEMETOLOGY METHOD 08/20/2025 6:14 PM EDT [facility] MCH 28.9 27.0 - 32.0 pcg LAB [facility] MCHC 31.6(L) 32.0 - 37.0 g/dL LAB HEMETOLOGY METHOD 08/20/2025 6:14 PM EDT [facility] RDW 13.9 11.0 - 15.0 % LAB [facility]OLOGY [facility] Platelets 225 130 - 400 K/mcL LAB [facility]OLOGY [facility] MPV 10.6 7.0 - 11.0 FL LAB HEMETOLOGY METHOD 08/20/2025 6:14 PM EDT [facility] NRBC 0.1 <1.0 % LAB [facility]OLOGY [facility] NRBC Absolute 0.02 <0.10 K/mcL LAB HEMETOLOGY METHOD 08/20/2025 6:[address] [facility] Neutrophils Relative 73.3 % LAB HEMETOLOGY METHOD 08/20/2025 6:14 PM EDT [facility] Lymphocytes Relative 14.3 % LAB HEMETOLOGY METHOD 08/20/2025 6:14 PM EDT [facility] Monocytes Relative 10.5 % LAB [facility]OLOGY METHOD [facility] Eosinophils Relative 0.5 % LAB HEMETOLOGY METHOD [facility] Basophils Relative 0.3 % LAB HEMETOLOGY METHOD 08/20/2025 6:14 PM EDT [facility] Immature Granulocytes Relative 1.1 % LAB HEMETOLOGY METHOD 08/20/2025 6:14 PM EDT [facility] Neutrophils Absolute 10.47(H) 1.50 - 7.00 K/mcL LAB HEMETOLOGY METHOD 08/20/2025 6:14 PM EDT [facility] Lymphocytes Absolute 2.05 1.00 - 5.00 K/mcL LAB HEMETOLOGY METHOD 08/20/2025 6:14 PM EDT [facility] Monocytes Absolute 1.50(H) 0.20 - 1.00 K/mcL LAB HEMETOLOGY METHOD 08/20/2025 6:14 PM EDT [facility] Eosinophils Absolute 0.07 0.00 - 0.50 K/mcL LAB HEMETOLOGY METHOD 08/20/2025 6:14 PM EDT [facility] Basophils Absolute 0.05 0.00 - 0.20 K/mcL LAB HEMETOLOGY METHOD 08/20/2025 6:14 PM EDT [facility] Immature Granulocytes Absolute 0.16(H) 0.00 - 0.03 K/mcL LAB HEMETOLOGY METHOD 08/20/2025 6:14 PM EDT [facility] Blood Venous blood specimen / Unknown Venipuncture / Unknown 08/20/2025 5:55 PM EDT 08/20/2025 6:02 PM EDT us Mustapha Santos MD LAB BLOOD ORDERABLES Final Resul t [facility] [address] [place] [address], * APTT (08/20/2025 5:55 PM EDT) aPTT 34.6 24.1 - 39.3 sec LAB COAGULATION METHOD 08/20/2025 6:19 PM EDT [facility] Blood Venous blood specimen / Unknown Venipuncture / Unknown 08/20/2025 5:55 PM EDT 08/20/2025 6:02 PM EDT us Mustapha Santos MD LAB BLOOD ORDERABLES Final Resul t Performing Organization Address [facility]/ZIP Co de Phone Number [facility] [address] [place] [address], [place] [phone] * Protime-INR (08/20/2025 5:55 PM EDT) Protime 13.8 10.6 - 13.9 sec LAB COAGULATION METHOD 08/20/2025 6:19 PM EDT [facility] INR 1.1 LAB COAGULATION METHOD 08/20/2025 6:19 PM EDT [facility] Blood Venous blood specimen / Unknown Venipuncture / Unknown 08/20/2025 5:55 PM EDT 08/20/2025 6:02 PM EDT us Mustapha Santos MD LAB BLOOD ORDERABLES Final Resul t Performing Organization Address [facility] Co de Phone Number [facility] [address] [place] [address], [place] [phone] * Basic Metabolic Panel (BMP) (08/20/2025 5:55 PM EDT) Only the most recent of2 resultswithin the time period is included. Sodium 141 133 - 145 mmol/L LAB CHEMISTRY METHOD 08/20/2025 6:31 PM EDT [facility] Potassium 4.4 3.5 - 5.5 mmol/L LAB CHEMISTRY METHOD 08/20/2025 6:31 PM EDT [facility] Chloride 108 96 - 110 mmol/L LAB CHEMISTRY METHOD 08/20/2025 6:31 PM EDT [facility] CO2 25 21 - 32 mmol/L LAB CHEMISTRY METHOD 08/20/2025 6:31 PM EDT [facility] Anion Gap 8 3 - 11 LAB CHEMISTRY METHOD 08/20/2025 6:31 PM EDT [facility] Glucose 81 70 - 100 mg/dL LAB CHEMISTRY METHOD 08/20/2025 6:31 PM EDT [facility] BUN 18 5 - 25 mg/dL LAB CHEMISTRY METHOD 08/20/2025 6:31 PM EDT [facility] Creatinine 1.02 0.50 - 1.10 mg/dL LAB CHEMISTRY METHOD 08/20/2025 6:31 PM EDT [facility] eGFR 73 >=60 mL/min/1. 73m2 LAB CHEMISTRY METHOD 08/20/2025 6:31 PM EDT [facility] Comment:Calculation based on the Chronic Kidney Disease Epidemiology Collaboration (CKD-EPI) equation refit without adjustment for race. BUN/Creatinine Ratio 17.6 LAB CHEMISTRY METHOD 08/20/2025 6:31 PM EDT [facility] Calcium 9.3 8.5 - 10.5 mg/dL LAB CHEMISTRY METHOD 08/20/2025 6:31 PM EDT [facility] Blood Venous blood specimen / Unknown Venipuncture / Unknown 08/20/2025 5:55 PM EDT 08/20/2025 6:02 PM EDT us Mustapha Santos MD LAB BLOOD ORDERABLES Final Resul t [facility] [address] [place] [address], * ECG-Annotated (08/18/2025) us Provider Onbase ECG ORDERABLES Final Result * [...] LAB CHEMISTRY METHOD 08/17/2025 8:50 PM EDT [facility] Blood Venous blood specimen / Unknown Venipuncture / Unknown 08/17/2025 7:37 PM EDT 08/17/2025 8:17 PM EDT Narrative [facility] - 08/17/2025 8:50 PM EDT High levels of biotin in samples may falsely decrease hsTroponin values. Use caution when interpreting hsTroponin results in patients taking biotin who exhibit renal impairment (eGFR <60) or in patients taking more than 20 mg/day of biotin. us Catherine Thomas MD LAB BLOOD ORDERABLES Final Resul t Performing Organization Address City/[facility]/ZIP Co de Phone Number [facility] [address] [place] [address], [place] [phone] * hCG Qualitative (08/17/2025 4:51 PM EDT) [facility] hCG Qual Negative Negative 08/17/2025 8:01 PM EDT [facility] Blood Venous blood specimen / Unknown Venipuncture / Unknown 08/17/2025 4:51 PM EDT 08/17/2025 5:12 PM EDT us Catherine Thomas MD LAB BLOOD ORDERABLES Final Resul t Performing Organization Address [facility] Co de Phone Number [facility] [address] [place] [address], [place] [phone] * Magnesium (08/17/2025 4:51 PM EDT) [facility] Magnesium 2.2 1.9 - 2.6 mg/dL LAB CHEMISTRY METHOD 08/17/2025 5:34 PM EDT [facility] Blood Venous blood specimen / Unknown Venipuncture / Unknown 08/17/2025 4:51 PM EDT 08/17/2025 5:12 PM EDT us Catherine Thomas MD LAB BLOOD ORDERABLES Final Resul t Performing Organization Address [facility]/ZIP Co de Phone Number [facility] [address] [place] [address], [place] [phone] * ECG 12 lead (08/17/2025 4:48 PM EDT) [facility] Ventricular Rate ECG 78 BPM GEMUSE Atrial Rate 78 BPM GEMUSE P-R Interval 150 ms GEMUSE QRS Duration 74 ms GEMUSE Q-T Interval 368 ms GEMUSE QTc 419 ms GEMUSE P Wave [place] 36 degrees GEMUSE R [place] 40 degrees GEMUSE T [place] 30 degrees GEMUSE ECG Interpretation Normal sinus rhythm Normal ECG When compared with ECG of 06-JUN-2025 08:20, No significant change was found Confirmed by YUKI RUDD ([id number]) on 08/18/2025 1:21:44 PM GEMUSE 08/17/2025 4:48 PM EDT 08/18/2025 1:21 PM EDT us Catherine Thomas MD ECG ORDERABLES Final Result GEMUSE from Last 3 Months Insurance MEDICARE MEDICAID - [place] Care Teams Beam Dyer Operator Relationship Specialty Start Date End Date Nixon Washington MD [address] [place] [address] PCP - General 09/24/22
== END 2025-09-07 09:52 | disposition home or self-care (01) ==
LOC: HO.HMCH 08:41
PROVIDERS: PCP Internal Medicine; Visit Provider Internal Medicine
DX: H61.22 Impacted cerumen, left ear (principal)

== ENCOUNTER → 2025-09-07 08:41 | Outpatient (BNVA) | payer MEDICARE, MEDICAID, SELFPAY | PROVIDERS: PCP Internal Medicine; Visit Provider Internal Medicine | DX: H61.23 Impacted cerumen, bilateral (principal) | CPT/HCPCS: 69209 ==